=== PATIENT | female | born 1965 | race Caucasian/White ===

== ENCOUNTER 2017-08-28 09:42 | Inpatient (IN) | payer OTHER, SELFPAY ==
[2017-08-28] VITALS (11 sets, daily range): BP systolic 92–122; BP diastolic 54–74; PULSE 95–128; RESP 14–24; TEMP 36.6–37.3; O2SAT 95–100; BMI 30.2; BMI 30.1
--- NOTE | 2017-08-28 09:57 | CT_ITS ---
STUDY: CT BRAIN WITHOUT CONTRAST REASON FOR EXAM: Female, 52 years old. Headaches. Possible influenza. RADIATION DOSAGE (If Supplied By Facility): CTDIvol = ( 44.99 ) mGy, DLP = ( 745.49 ) mGycm TECHNIQUE: Transaxial CT imaging of the brain was performed without administration of intravenous contrast material. Individualized dose optimization techniques were used for this CT. COMPARISON: None. FINDINGS: Normal soft tissue structures. Normal calvarium. Normal size ventricles and extra-axial spaces for the patient's age. Normal white matter tracts of the cerebral hemispheres. Normal basal ganglia and thalami. Normal brainstem. Normal cerebellum. There is no intracranial hemorrhage. There are no findings of an acute ischemic infarction. Normal visualized paranasal sinuses. CT/Brain/Head without Contrast IMPRESSION: Normal unenhanced CT scan of the brain. Electronically Signed: Toby Herbert MD at 11:18 EST Tel [phone], Service support ,
--- NOTE | 2017-08-28 09:57 | EKG12_ITS ---
Test Reason : COLDSYM Blood Pressure : / mmHG Vent. Rate : 103 BPM Atrial Rate : 103 BPM P-R Int : 138 ms QRS Dur : 084 ms QT Int : 338 ms P-R-T Axes : 054 047 046 degrees QTc Int : 442 ms Sinus tachycardia Otherwise normal ECG Confirmed by NICHOLAS PADRON, JAD ([id number]), editor greeting card ANDREIA VAZQUEZ ([id number]) on 08/29/2017 1:19:32 PM Referred By: Confirmed By:JAD PETERSON MD
--- NOTE | 2017-08-28 10:00 | ED.VISSUMM ---
- ER Visit Summary Date of Service: 08/28/17 Chief Complaint: Cough, chest discomfort, headache History of Present Illness: The patient is a 52 F presents with 10 days of symptoms, initially cough, myalgias, headache, seen at urgent care early on, status post Tamiflu. States symptoms were improving. However 2 days ago had increasing chest discomfort with cough. Pain with deep breaths. No pain down the arm. No nausea or vomiting. Persistent frontal headache with no visual changes. No photo or phonophobia. No head injuries. Using Tylenol and naproxen with no relief. Last dose of naproxen at 8 AM today. One diarrhea episode today. No abdominal pain. No tobacco history. No recent travel, surgeries, or immobilizations. No history of PE or DVT. Currently takes no medications daily. Physical Examination: General: Alert and oriented ?3, no acute distress HEENT: Normocephalic, atraumatic. Moist mucosa membranes Neck: supple, nontender. No meningismus Cardiovascular: Regular tachycardic rate and rhythm, no murmurs. Mild anterior left chest wall tenderness with no crepitus. No rash. Respiratory: Normal breath sounds, symmetric, no distress Abdomen: Soft, nontender, nondistended Extremities: Nontender, no edema, pulses intact ?4 Neuro: no focal neurological deficits. Cranial nerves II through XII intact. Test Results: EKG sinus tachycardia 103, no ST or T-wave changes. CBC, white count 20.7. Hemoglobin 13.4. Creatinine 1.24. Troponin negative. D-dimer 1.5. Lactate and blood cultures pending. Chest x-ray left lower lobe pneumonia with effusion. CTA chest: Left lower lobe pneumonia with effusion. No PE. CT head negative. Emergency Department Course and Treatment: Patient presents afebrile she is slight tachycardia. Plan pleuritic symptoms of pain with deep breaths on the left side of her chest. Workup initiated including d-dimer for PE rule out. Results noting left lower lobe infiltrate with effusion. Heart rate did improve with fluids. Her white count was 20,000. I did add lactate and blood cultures for sepsis labs. Started on Rocephin and Zithromax for community acquired pneumonia. Discuss with her PCP, Dr. Cuevas concerned with post influenza symptoms now pneumonia. With her headache symptoms, CT head was obtained which was negative. Treated fentanyl and Zofran for symptomatic treatment. Spoke with hospitalist, Dr. Crawley for admission. She is stable for the medical floor. Treatment Plan: Antibiotics Disposition: Admission Impression: 1. Community acquired pneumonia 2. Cephalgia 3. Sepsis This note was generated with [employer] dictation software. It may contain incorrect words, spelling, and punctuation that were not noted in review of the chart prior to signing ED Disposition - Plan for ED Patient: Disposition: Acute Care [facility] Chief Complaint: Cold Sx Diagnosis: Pneumonia, Sepsis, Cephalgia Referrals: Nohemy Cuevas DO [Primary Care Provider] -
--- NOTE | 2017-08-28 10:02 | NURSING ---
NO OLD EKGS
--- NOTE | 2017-08-28 10:40 | RAD_ITS ---
STUDY: X-RAY CHEST REASON FOR EXAM: Female, 52 years old. Cough. Cold like symptoms. TECHNIQUE: PA and lateral views of the chest. COMPARISON: None. FINDINGS: Small left pleural effusion with underlying left lower lobe infiltration. There is no demonstrated pleural abnormality. Normal size heart. Normal mediastinum and austen. Normal visualized pulmonary arteries. Normal visualized aortic arch and descending thoracic aorta. Normal visualized thoracic spine. Normal visualized ribs, clavicles, and shoulders. There is no demonstrated abnormality of the visualized soft tissue structures of the upper abdomen. RAD/Chest PA and Lateral IMPRESSION: Left lower lobe infiltrate with small left pleural effusion. Electronically Signed: Toby Herbert MD at 11:18 EST Tel [phone], Service support ,
[2017-08-28 10:45] LABS: Absolute Lymphocyte Count 0.42 X10^3/ul (0.83-4.51); Absolute Neutrophil Count 19.6 X10^3/uL (2.0-7.7); Eosinophil# 0.01 X10^3/uL; Hematocrit 39.4 % (37-47); Hemoglobin 13.4 g/dl (12.0-15.0); Lymphocyte # 0.42 X10^3/ul (4.0); Mean Corpuscular Hgb 30.2 pg (27.0-32.0); Mean Corpuscular Volume 88.9 fL (81-99); Mean Platelet Vol. 11.6 fl (6.2-12.0); Monocyte# 0.46 X10^3/uL; Monocyte% 2.2 % (0-10); Neutrophil # 19.62 X10^3/uL (2.7-7.7); Neutrophil % 94.9 % (47-70); Platelet Count 187 K/mm3 (150-450); RBC Distribution Width CV 13.8 % (11.6-14.6); RBC Distribution Width SD 45.1 fl (35.1-43.9); Red Blood Count 4.43 M/mm3 (4.2-5.4); White Blood Count 20.7 K/mm3 (4.4-11.0)
[2017-08-28 10:47] LABS: Differential Indicated SCAN CRITERIA MET; POSITIVE COUNT NO; POSITIVE DIFFERENTIAL YES; POSITIVE MORPHOLOGY NO
[2017-08-28 10:57] LABS: BUN 37 mg/dL (7-18); BUN/Creat Ratio 29.8 RATIO (10-20); Calcium,Total 8.6 mg/dL (8.5-10.1); Creatinine, Serum 1.24 mg/dL (0.55-1.02); EST Glomerular Filtration Rate 48 mL/min (>60); Est Glom Filt Rate - Afr Amer 58 mL/min (>60); Estimated Creatinine Clearance 41.97 ml/min; Glucose 102 mg/dL (74-106)
[2017-08-28 10:58] LABS: Anion Gap 11 (5-15); Chloride 105 mmol/L (98-107); D-Dimer Quantitative (DVT/PE) 1.51 FEU/ug/m (0.27-0.49); Potassium 3.6 mmol/L (3.5-5.1); Sodium Level 138 mmol/L (136-145)
--- NOTE | 2017-08-28 11:03 | CT_ITS ---
STUDY: CTA CHEST REASON FOR EXAM: Female, 52 years old. Shortness of breath. Influenza. Elevated d-dimer. RADIATION DOSAGE (If Supplied By Facility): CTDIvol = ( 5.84 ) mGy, DLP = ( 233.54 ) mGycm TECHNIQUE: The examination was performed with the intravenous administration of 75ML ml of Isovue 370 contrast material. Post-processing of the angiographic images was performed, with multiplanar reformation and 3D reconstruction. Individualized dose optimization techniques were used for this CT. COMPARISON: None. FINDINGS: Normal enhancement of the main pulmonary artery and right and left pulmonary arteries. Normal enhancement of the bilateral peripheral pulmonary arteries. There is no demonstrated pulmonary embolism. Normal thoracic aorta and visualized great vessels. There is no demonstrated aortic dissection. Normal heart and pericardium. Normal mediastinum. Normal hilar regions. Normal visualized trachea and bronchi. The lungs are well expanded. Left lower lobe consolidation. Small left pleural effusion. Minimal degree of increased markings at the right lung base. Normal chest wall structures. Normal osseous structures. Normal visualized upper abdomen. CT/CTA Chest W/WO Contrast IMPRESSION: Left lower lobe consolidation with a small left pleural effusion. Mild increased markings at the right lung base. Electronically Signed: Toby Herbert MD at 12:30 EST Tel [phone], Service support ,
[2017-08-28] MEDS: Ondansetron 4 MG/2 ML Vial IV ×2 (12:48→15:05)
[2017-08-28] MEDS: fentaNYL 100 MCG/2 ML Ampul 25 MCG IV (12:48)
[2017-08-28 13:05] LABS: AST(SGOT) 15 U/L (15-37); Alanine Aminotransfer ALT/SGPT 20 U/L (13-56); Albumin, Serum 3.3 g/dL (3.2-5.0); Alkaline Phosphatase 75 U/L (45-117); Bilirubin, Direct 0.32 mg/dL (0.00-0.30); Globulin 3.6 g/dL (2.2-4.2); Protein, Total 6.9 g/dL (6.4-8.2)
--- NOTE | 2017-08-28 13:06 | NURSING ---
214 cap, lll letty
[2017-08-28 13:23] LABS: International Normalized Ratio 1.3
[2017-08-28 13:24] LABS: Partial Thromboplast Time 35.1 Seconds (24.1-36.2)
--- NOTE | 2017-08-28 13:24 | ED.RN ---
PATIENT HAS ZITHROMAX RUNNING THROUGH PIV, OTHER PIV ATTEMPTED UNSUCCESSFUL. SENDING ROCEPHIN DOSE UP WITH PATIENT AT THIS TIME. BLOOD CULTURES SENT.
--- NOTE | 2017-08-28 13:35 | PCM.HP.STD ---
Problem List (1) Community acquired pneumonia of left lower lobe of lung Status: Acute (2) Left lower pneumonic pleural effusion Status: Acute (3) Sepsis Status: Acute (4) Cephalgia Status: Acute History of Present Illness Date of Admission: 08/28/17 Chief Complaint: Cough, chest discomfort with fever and chills for about 10 days The patient is a 52 year old F with no significant past medical history came to ER with symptoms of cough, fever, chills, myalgia and headache, on and off for about 10 days. Earlier, patient was given Tamiflu in urgent care. Her symptoms were improved for brief. Of time and then gotten worse with cough, fever and chills and left lower chest discomfort/pain. Pain is localized left lower anterior chest. Patient also had loose bowel movement in the morning today, liquid in consistency. No abdominal pain. In ED, she had chest x-ray which showed left lower lobe infiltrate with small left pleural effusion and after that she had CT angiogram chest for elevated d-dimer which showed similar picture left lower lobe consolidation with a small left pleural effusion. PE was ruled out. Patient was ordered IV ceftriaxone and Zithromax. No recent antibiotic as an outpatient. Past Medical History Allergies No Known Allergies Allergy (Verified 08/28/17 09:44) Home Medications: Ambulatory Orders Medication Instructions Recorded NK [NK] 08/28/17 Smoking Status: Never smoker - *Family History Paternal History Items: No pertinent history Review of Systems Constitutional: Reports: Anorexia, Chills, Fever, Weakness, Fatigue HEENT: Denies: Head Aches, Sinus Congestion, Sinus Drainage Cardiovascular: Reports: Chest Pain. Denies: Palpitations Respiratory: Reports: Cough, Shortness of breath upon exertion. Denies: Shortness of breath at rest, Sputum production Gastrointestinal: Reports: Diarrhea. Denies: Abdominal Pain, Nausea, Vomiting Genitourinary: Denies: Dysuria Musculoskeletal: Denies: Joint Pain, Joint Tenderness Skin: Denies: Rash, Wounds Neurological: Denies: Numbness, Tingling, Focal weakness Psychiatric: Denies: Anxiety, Depression, Homicidal Ideations, Suicidal Ideations Hematologic/ Lymphatic: Denies: Easy Bruising, Easy Bleeding VTE Information - Inpt Only VTE Present on Admission: No VTE Mechan Device Prophylaxis: SCD's VTE Pharm Prophylaxis ordered?: Yes Patient Problems: Active and Suspected Problems Sepsis (Acute) Cephalgia (Acute) Community acquired pneumonia of left lower lobe of lung (Acute) Left lower pneumonic pleural effusion (Acute) - Physical Exam General: Alert, Oriented x3, Cooperative HEENT: Atraumatic, PERRLA, EOMI, Normocephalic Oral: Dry Mucosa Neck: Supple, No JVD, Negative Carotid Bruits Lungs: Clear to auscultation, No rhonchi, No wheeze, No rales, Diminished - On left lower chest posteriorly Cardiovascular: Regular rate, Regular Rhythm, Normal S1, Normal S2, No murmurs Abdomen: Bowel Sounds Present, Soft, Non Tender, Non-Distended Extremities: No edema, Capillary Refill Less than 3 Seconds Skin: No rashes, No breakdown Musculoskeletal: No Tenderness to Palpation of Joints or Extremities Neurological: Cranial nerves II-XII grossly intact Psych/Mental Status: Normal Affect, Appropriate Vital Signs Temp Pulse Resp BP Pulse Ox 98 F 96 14 122/74 H 97 08/28/17 09:43 08/28/17 13:10 08/28/17 13:10 08/28/17 13:10 08/28/17 13:10 Laboratory Tests Past 24 Hrs 08/28/17 13:00 Lactic Acid Pending Assessment/Plan Active and Suspected Problems Sepsis (Acute) Cephalgia (Acute) Community acquired pneumonia of left lower lobe of lung (Acute) Left lower pneumonic pleural effusion (Acute) The patient is a 52 year old F with no significant past medical history came to ER with symptoms of cough, fever, chills, myalgia and headache, on and off for about 10 days. Earlier, patient was given Tamiflu in urgent care. Her symptoms were improved for brief. Of time and then gotten worse with cough, fever and chills and left lower chest discomfort/pain. Pain is localized left lower anterior chest. Patient also had loose bowel movement in the morning today, liquid in consistency. No abdominal pain. In ED, she had chest x-ray which showed left lower lobe infiltrate with small left pleural effusion and after that she had CT angiogram chest for elevated d-dimer which showed similar picture left lower lobe consolidation with a small left pleural effusion. PE was ruled out. Patient was ordered IV ceftriaxone and Zithromax. No recent antibiotic as an outpatient. 1. SIRS (tachycardia and leukocytosis with left shift) with sepsis due to left lower lobe complicated community acquired pneumonia: Patient is being admitted on the monitored bed. On IV fluid normal saline. IV antibiotics. Bronchodilator. 2. Complicated left lower lobe community acquired pneumonia with small parapneumonic left pleural effusion: IV antibiotics ceftriaxone and Zithromax. Incentive spirometry symptomatic management for cough, chest physiotherapy and incentive spirometry. Blood cultures ?2, MRSA nasal screen, respiratory panel ordered. Lactic acid pending. 3. Other symptoms include headache and diarrhea possibly related to sepsis due to pneumonia: Symptomatic management. On probiotic. DVT prophylaxis: Moderate risk, on Lovenox and bilateral SCDs. Clinical Impression(s) from Imaging Studies Brain CT 08/28/17 09:57 IMPRESSION: Normal unenhanced CT scan of the brain. Electronically Signed: Toby Herbert MD at 11:18 EST Tel [phone], Service support , Chest X-Ray 08/28/17 10:40 IMPRESSION: Left lower lobe infiltrate with small left pleural effusion. Electronically Signed: Toby Herbert MD at 11:18 EST Tel [phone], Service support , Chest CTA 08/28/17 11:03 IMPRESSION: Left lower lobe consolidation with a small left pleural effusion. Mild increased markings at the right lung base. Electronically Signed: Toby Herbert MD at 12:30 EST Tel [phone], Service support , Code Visit Inpatient E&M: 18876 Init Hosp L3
--- NOTE | 2017-08-28 13:38 | ED.RN ---
VERBAL REPORT GIVE4N TO FLOOR RN, MADE AWARE OF THE NEED FOR ROCEPHIN TO STILL BE HUNG.
[2017-08-28 13:45] LABS: Lactic Acid 1.5 mmol/L (0.4-2.0)
--- NOTE | 2017-08-28 13:47 | HP.PCM_ITS ---
Problem List (1) Community acquired pneumonia of left lower lobe of lung Status: Acute (2) Left lower pneumonic pleural effusion Status: Acute (3) Sepsis Status: Acute (4) Cephalgia Status: Acute History of Present Illness Date of Admission: 08/28/17 Chief Complaint: Cough, chest discomfort with fever and chills for about 10 days The patient is a 52 year old F with no significant past medical history came to ER with symptoms of cough, fever, chills, myalgia and headache, on and off for about 10 days. Earlier, patient was given Tamiflu in urgent care. Her symptoms were improved for brief. Of time and then gotten worse with cough, fever and chills and left lower chest discomfort/pain. Pain is localized left lower anterior chest. Patient also had loose bowel movement in the morning today, liquid in consistency. No abdominal pain. In ED, she had chest x-ray which showed left lower lobe infiltrate with small left pleural effusion and after that she had CT angiogram chest for elevated d- dimer which showed similar picture left lower lobe consolidation with a small left pleural effusion. PE was ruled out. Patient was ordered IV ceftriaxone and Zithromax. No recent antibiotic as an outpatient. Past Medical History Allergies No Known Allergies Allergy (Verified 08/28/17 09:44) Home Medications: Ambulatory Orders Medication Instructions Recorded NK [NK] 08/28/17 Smoking Status: Never smoker - *Family History Paternal History Items: No pertinent history Review of Systems Constitutional: Reports: Anorexia, Chills, Fever, Weakness, Fatigue HEENT: Denies: Head Aches, Sinus Congestion, Sinus Drainage Cardiovascular: Reports: Chest Pain. Denies: Palpitations Respiratory: Reports: Cough, Shortness of breath upon exertion. Denies: Shortness of breath at rest, Sputum production Gastrointestinal: Reports: Diarrhea. Denies: Abdominal Pain, Nausea, Vomiting Genitourinary: Denies: Dysuria Musculoskeletal: Denies: Joint Pain, Joint Tenderness Skin: Denies: Rash, Wounds Neurological: Denies: Numbness, Tingling, Focal weakness Psychiatric: Denies: Anxiety, Depression, Homicidal Ideations, Suicidal Ideations Hematologic/ Lymphatic: Denies: Easy Bruising, Easy Bleeding VTE Information - Inpt Only VTE Present on Admission: No VTE Mechan Device Prophylaxis: SCD's VTE Pharm Prophylaxis ordered?: Yes Patient Problems: Active and Suspected Problems Sepsis (Acute) Cephalgia (Acute) Community acquired pneumonia of left lower lobe of lung (Acute) Left lower pneumonic pleural effusion (Acute) - Physical Exam General: Alert, Oriented x3, Cooperative HEENT: Atraumatic, PERRLA, EOMI, Normocephalic Oral: Dry Mucosa Neck: Supple, No JVD, Negative Carotid Bruits Lungs: Clear to auscultation, No rhonchi, No wheeze, No rales, Diminished - On left lower chest posteriorly Cardiovascular: Regular rate, Regular Rhythm, Normal S1, Normal S2, No murmurs Abdomen: Bowel Sounds Present, Soft, Non Tender, Non-Distended Extremities: No edema, Capillary Refill Less than 3 Seconds Skin: No rashes, No breakdown Musculoskeletal: No Tenderness to Palpation of Joints or Extremities Neurological: Cranial nerves II-XII grossly intact Psych/Mental Status: Normal Affect, Appropriate Vital Signs Temp Pulse Resp BP Pulse Ox 98 F 96 14 122/74 H 97 08/28/17 09:43 08/28/17 13:10 08/28/17 13:10 08/28/17 13:10 08/28/17 13:10 Laboratory Tests Past 24 Hrs 08/28/17 13:00 Lactic Acid Pending Assessment/Plan Active and Suspected Problems Sepsis (Acute) Cephalgia (Acute) Community acquired pneumonia of left lower lobe of lung (Acute) Left lower pneumonic pleural effusion (Acute) The patient is a 52 year old F with no significant past medical history came to ER with symptoms of cough, fever, chills, myalgia and headache, on and off for about 10 days. Earlier, patient was given Tamiflu in urgent care. Her symptoms were improved for brief. Of time and then gotten worse with cough, fever and chills and left lower chest discomfort/pain. Pain is localized left lower anterior chest. Patient also had loose bowel movement in the morning today, liquid in consistency. No abdominal pain. In ED, she had chest x-ray which showed left lower lobe infiltrate with small left pleural effusion and after that she had CT angiogram chest for elevated d- dimer which showed similar picture left lower lobe consolidation with a small left pleural effusion. PE was ruled out. Patient was ordered IV ceftriaxone and Zithromax. No recent antibiotic as an outpatient. 1. SIRS (tachycardia and leukocytosis with left shift) with sepsis due to left lower lobe complicated community acquired pneumonia: Patient is being admitted on the monitored bed. On IV fluid normal saline. IV antibiotics. Bronchodilator. 2. Complicated left lower lobe community acquired pneumonia with small parapneumonic left pleural effusion: IV antibiotics ceftriaxone and Zithromax. Incentive spirometry symptomatic management for cough, chest physiotherapy and incentive spirometry. Blood cultures ?2, MRSA nasal screen, respiratory panel ordered. Lactic acid pending. 3. Other symptoms include headache and diarrhea possibly related to sepsis due to pneumonia: Symptomatic management. On probiotic. DVT prophylaxis: Moderate risk, on Lovenox and bilateral SCDs. Clinical Impression(s) from Imaging Studies Brain CT 08/28/17 09:57 IMPRESSION: Normal unenhanced CT scan of the brain. Electronically Signed: Toby Herbert MD at 11:18 EST Tel [phone], Service support , Chest X-Ray 08/28/17 10:40 IMPRESSION: Left lower lobe infiltrate with small left pleural effusion. Electronically Signed: Toby Herbert MD at 11:18 EST Tel [phone], Service support , Chest CTA 08/28/17 11:03 IMPRESSION: Left lower lobe consolidation with a small left pleural effusion. Mild increased markings at the right lung base. Electronically Signed: Toby Herbert MD at 12:30 EST Tel [phone], Service support , Code Visit Inpatient E&M: 97520 Init Hosp L3
--- NOTE | 2017-08-28 14:28 | CASEMGMT ---
DC Plan: home on dc. No needs identified @ this time. Notify CM if dc needs arise.
[2017-08-28] MEDS: Ceftriaxone 1 GM/50 mL Premix x1 IV (15:03)
[2017-08-28] MEDS: Acetaminophen 325 MG Tablet 650 MG PO (15:05)
[2017-08-28] MEDS: guaiFENesin 600 MG Tablet 1200 MG PO ×2 (15:05→22:46)
[2017-08-28] MEDS: Enoxaparin 40 MG/0.4 ML Syringe SC (15:05)
[2017-08-28] MEDS: Famotidine 20 MG Tablet PO ×2 (15:06→22:46)
[2017-08-28] MEDS: oxyCODONE 5 MG Tablet PO ×2 (15:06→19:30)
[2017-08-28 15:07] LABS: Color, Urine Yellow (Yellow); Glucose, Dipstick Normal (Normal); Ketone-Dipstick 50 mg/dl (Negative); Leukocyte Esterase-Dipstick Negative /ul (Negative); Nitrite-Dipstick Negative (Negative); Occult Blood-Urine 10 /ul (Negative); Protein-Dipstick 30 mg/dl (Negative); Specific Gravity, Urine 1.005 (1.002-1.030); Urine Bilirubin Dipstick Negative (Negative); Urine Clarity Sl. Cloudy (Clear); Urine Urobilinogen 4 mg/dl (Normal); Urine pH 6.5 (5.0 - 8.0)
[2017-08-28] MEDS: 0.9% Normal Saline 1,000 ML 100 ML IV (15:18)
--- NOTE | 2017-08-28 15:19 | NURSING ---
MARTI FROM [facility] CALLED AND ASKED TO GIVE AEROSOL AND GET SPUTUM COLLECTION, PT HAS WEAK, NON PRODUCTIVE COUGH C/O RIB PAIN ON LEFT STATES HSE HAD IN ER AND INFORMED THAT SHE HAS LEFT CHEST DISCOMFORT
[2017-08-28] MEDS: Albuterol 2.5 MG/3 ML VIAL.NEB. INHALATION (15:44)
[2017-08-28] MEDS: Ipratropium/Albuterol Sulfate 3 ML AMPUL.NEB INHALATION (19:46)
[2017-08-28 21:16] LABS: M R Staph aureus DNA By PCR Negative (Negative); Probe Check PASS; Specimen Processing Control PASS
[2017-08-29] VITALS (11 sets, daily range): BP systolic 94–98; BP diastolic 54–65; PULSE 89–115; RESP 16–20; TEMP 36.4–37.1; O2SAT 94–99
[2017-08-29] MEDS: oxyCODONE 5 MG Tablet PO ×5 (01:01→20:53)
[2017-08-29] MEDS: 0.9% NaCl Peripheral Flush Adult/Peds IV (01:02)
[2017-08-29] MEDS: Ondansetron 4 MG/2 ML Vial IV ×3 (01:02→16:29)
[2017-08-29] MEDS: 0.9% Normal Saline 1,000 ML 100 ML IV (01:02)
[2017-08-29 06:17] LABS: Absolute Lymphocyte Count 0.46 X10^3/ul (0.83-4.51); Absolute Neutrophil Count 13.2 X10^3/uL (2.0-7.7); Basophil# 0.01 X10^3/uL; Basophil% 0.1 % (0-1); Hematocrit 34.2 % (37-47); Hemoglobin 11.6 g/dl (12.0-15.0); Lymphocyte # 0.46 X10^3/ul (4.0); Lymphocyte % 3.3 % (19-41); Mean Corp Hgb Conc 33.9 g/gl (32-36); Mean Corpuscular Hgb 30.9 pg (27.0-32.0); Mean Platelet Vol. 12.1 fl (6.2-12.0); Monocyte# 0.44 X10^3/uL; Monocyte% 3.1 % (0-10); Neutrophil # 13.18 X10^3/uL (2.7-7.7); Neutrophil % 93.2 % (47-70); Platelet Count 194 K/mm3 (150-450); RBC Distribution Width CV 14.4 % (11.6-14.6); RBC Distribution Width SD 46.4 fl (35.1-43.9); Red Blood Count 3.76 M/mm3 (4.2-5.4); White Blood Count 14.1 K/mm3 (4.4-11.0)
[2017-08-29 06:18] LABS: Differential Indicated SCAN CRITERIA MET; POSITIVE COUNT NO; POSITIVE DIFFERENTIAL YES; POSITIVE MORPHOLOGY YES
[2017-08-29] MEDS: Enoxaparin 40 MG/0.4 ML Syringe SC (06:36)
[2017-08-29 06:48] LABS: Anion Gap 7 (5-15); BUN 23 mg/dL (7-18); BUN/Creat Ratio 30.2 RATIO (10-20); Calcium,Total 7.5 mg/dL (8.5-10.1); Chloride 107 mmol/L (98-107); Creatinine, Serum 0.76 mg/dL (0.55-1.02); EST Glomerular Filtration Rate 85 mL/min (>60); Est Glom Filt Rate - Afr Amer 103 mL/min (>60); Estimated Creatinine Clearance 68.48 ml/min; Glucose 102 mg/dL (74-106); Potassium 3.8 mmol/L (3.5-5.1); Sodium Level 138 mmol/L (136-145)
[2017-08-29] MEDS: Ipratropium/Albuterol Sulfate 3 ML AMPUL.NEB INHALATION ×3 (07:12→19:15)
[2017-08-29] MEDS: 0.9% Normal Saline 1,000 ML 999 ML IV (08:43)
[2017-08-29 09:10] LABS: Lactic Acid 1.6 mmol/L (0.4-2.0)
[2017-08-29] MEDS: Ceftriaxone 1 GM/50 ML BAG IV (09:50)
[2017-08-29] MEDS: 0.9% Normal Saline 1,000 ML 150 ML IV ×2 (09:51→18:29)
[2017-08-29] MEDS: guaiFENesin 600 MG Tablet 1200 MG PO ×2 (09:53→22:07)
[2017-08-29] MEDS: Famotidine 20 MG Tablet PO ×2 (09:55→22:07)
[2017-08-29] MEDS: Acetaminophen 325 MG Tablet 650 MG PO ×3 (10:57→20:53)
--- NOTE | 2017-08-29 11:43 | EKG12_ITS ---
Test Reason : TACHY Blood Pressure : / mmHG Vent. Rate : 089 BPM Atrial Rate : 089 BPM P-R Int : 152 ms QRS Dur : 090 ms QT Int : 368 ms P-R-T Axes : 056 027 025 degrees QTc Int : 447 ms Normal sinus rhythm Low voltage QRS Borderline ECG When compared with ECG of 28-AUG-2017 10:06, No significant change was found Confirmed by MARY ANN ALBRECHT ([id number]), news editor ANDREIA AVZQUEZ ([id number]) on 09/07/2017 3:02:27 PM Referred By: VIDA Confirmed By:MARY ANN ALBRECHT
--- NOTE | 2017-08-29 14:01 | PCM.PN.HOSP ---
Patient Problems: Active and Suspected Problems Sepsis (Acute) Cephalgia (Acute) Community acquired pneumonia of left lower lobe of lung (Acute) Left lower pneumonic pleural effusion (Acute) Subjective: Blood Pressure dropped to the low 90s and mild tachycardia morning today. Mild tachycardia due to sepsis Vitals/I&O's: Vital Signs Temp Pulse Resp BP Pulse Ox 98.8 F 101 H 18 94/61 95 08/29/17 10:24 08/29/17 10:24 08/29/17 10:24 08/29/17 10:24 08/29/17 10:24 Oxygen Delivery Method Room Air Weight: 164 lb 14.492 oz Body Mass Index (BMI) 30.1 Intake and Output for Last 24 Hours 08/27/17 08/28/17 08/29/17 23:59 23:59 23:59 Intake Total 4596 / 4596 Output Total 2600 / 2600 Balance 1995 General: Oriented x3, Cooperative, Lethargic, - - Looks very weak and sick HEENT: Atraumatic, PERRLA, EOMI, Normocephalic Neck: Supple, No JVD, Negative Carotid Bruits Lungs: No rhonchi, No wheeze, Diminished - In posterior half of the left lung Cardiovascular: Regular rate, Regular Rhythm, Normal S1, Normal S2, No murmurs Abdomen: Bowel Sounds Present, Soft, Non Tender, Non-Distended Extremities: No edema, Capillary Refill Less than 3 Seconds Skin: No rashes, No breakdown Musculoskeletal: No Tenderness to Palpation of Joints or Extremities Neurological: Cranial nerves II-XII grossly intact Psych/Mental Status: Normal Affect, Appropriate Microbiology Past 72 Hours 08/28/17 15:55 Mucosa - Nasopharyngeal Respiratory Panel (PCR) - Final Human [place] 08/28/17 14:30 Urine, Clean Catch Streptococcus pneumoniae Antigen (M - Final 08/28/17 14:30 Urine, Clean Catch Legionella Antigen - Final Laboratory Results 08/28/17 14:30: Urine Color Yellow, Urine Clarity Sl. Cloudy, Urine pH 6.5, Ur Specific [place] 1.005, Urine Protein 30 H, Urine Glucose (UA) Normal, Urine Ketones 50 H, Urine Occult Blood 10 H, Urine Nitrite Negative, Urine Bilirubin Negative, Urine Urobilinogen 4 H, Ur Leukocyte Esterase Negative 08/28/17 19:30: MRSA (PCR) Negative 08/29/17 05:50: WBC 14.1 H, RBC 3.76 L, Hgb 11.6 L, Hct 34.2 L, MCV 91.0, MCH 30.9, MCHC 33.9, RDW 14.4, RDW Differential 46.4 H, Plt Count 194, MPV 12.1 H, Immature Gran % (Auto) 0.300, Neut % (Auto) 93.2 H, Lymph % (Auto) 3.3 L, [place] % (Auto) 3.1, Eos % (Auto) 0.0, Baso % (Auto) 0.1, Absolute Neuts (auto) 13.2 H, Absolute Lymphs (auto) 0.46 L, Total Counted Not Reportable 08/29/17 05:50: Sodium 138, Potassium 3.8, Chloride 107, Carbon Dioxide 24.0, Anion Gap 7, BUN 23 H, Creatinine 0.76, Estim Creat Clear Calc 68.48, Est GFR (MDRD) Af Amer 103, Est GFR (MDRD) Non-Af 85, BUN/Creatinine Ratio 30.2 H, Glucose 102, Calcium 7.5 L 08/29/17 08:35: Lactic Acid 1.6 Current Medications Acetaminophen (Tylenol) 650 mg PO Q4H PRN PRN PRN Reason: FEVER Last Admin: 08/29/17 10:57 Dose: 650 mg Albuterol Sulfate (Ventolin Aerosols) 2.5 mg INHALATION Q2H PRN PRN PRN Reason: SHORTNESS OF BREATH Last Admin: 08/28/17 15:44 Dose: 2.5 mg Albuterol/Ipratropium (Duoneb) 3 ml INHALATION Q6HWA.RT [facility] Last Admin: 08/29/17 13:28 Dose: 3 ml Docusate Sodium (Colace) 200 mg PO BID PRN PRN PRN Reason: Constipation Enoxaparin Sodium (Lovenox) 40 mg SC DAILY@0600 [facility] Last Admin: 08/29/17 06:36 Dose: 40 mg Famotidine (Pepcid) 20 mg PO BID [facility] Last Admin: 08/29/17 09:55 Dose: 20 mg Guaifenesin (Mucinex) 1,200 mg PO BID [facility] Last Admin: 08/29/17 09:53 Dose: 1,200 mg Azithromycin 500 mg/ Dextrose 255 mls @ 250 mls/hr IV Q24 [facility] Stop: 08/30/17 11:02 Last Admin: 08/29/17 10:43 Dose: 250 mls/hr Ceftriaxone Sodium (Rocephin) 1 gm in 50 mls @ 100 mls/hr IV Q24 [facility] Last Admin: 08/29/17 09:50 Dose: 100 mls/hr Sodium Chloride () 1,000 mls @ 150 mls/hr IV .Q6H40M [facility] Last Admin: 08/29/17 09:51 Dose: 150 mls/hr Ondansetron HCl (Zofran) 4 mg IV Q6H PRN PRN PRN Reason: NAUSEA Last Admin: 08/29/17 08:42 Dose: 4 mg Oxycodone HCl (Oxyir) 5 mg PO Q4H PRN PRN PRN Reason: Moderate Pain (pain scale 4-5) Last Admin: 08/29/17 10:57 Dose: 5 mg Sodium Chloride () 5 - 30 ml IV UD PRN PRN Reason: SALINE FLUSH Last Admin: 08/29/17 01:02 Dose: 10 ml Zolpidem Tartrate (Ambien (Generic)) 5 mg PO QHS PRN PRN PRN Reason: SLEEP Assessment/Plan Active and Suspected Problems Sepsis (Acute) Cephalgia (Acute) Community acquired pneumonia of left lower lobe of lung (Acute) Left lower pneumonic pleural effusion (Acute) The patient is a 52 year old F with no significant past medical history came to ER with symptoms of cough, fever, chills, myalgia and headache, on and off for about 10 days. Earlier, patient was given Tamiflu in urgent care. Her symptoms were improved for brief. Of time and then gotten worse with cough, fever and chills and left lower chest discomfort/pain. Pain is localized left lower anterior chest. Patient also had loose bowel movement in the morning today, liquid in consistency. No abdominal pain. In ED, she had chest x-ray which showed left lower lobe infiltrate with small left pleural effusion and after that she had CT angiogram chest for elevated d-dimer which showed similar picture left lower lobe consolidation with a small left pleural effusion. PE was ruled out. Patient was ordered IV ceftriaxone and Zithromax. No recent antibiotic as an outpatient. 1. SIRS (tachycardia and leukocytosis with left shift) with hypotension due to severe sepsis due to left lower lobe complicated community acquired pneumonia: Patient is being admitted on the monitored bed. On IV fluid normal saline. IV antibiotics. Bronchodilator. Patient was given IV fluid normal saline 1 L bolus and then 150 ml per hour. 2. Complicated left lower lobe community acquired pneumonia with small parapneumonic left pleural effusion: Initially started on IV antibiotics ceftriaxone and Zithromax but changed IV Zosyn as the patient had low blood pressure suggestive of severe sepsis.. Incentive spirometry symptomatic management for cough, chest physiotherapy and incentive spirometry. Lactic acid is ?2 are normal. Respiratory panel shows human [place] S. Urinary antigens are negative. MRSA nasal screen negative. Blood cultures ?2 negative so far 3. Other symptoms include headache and diarrhea possibly related to sepsis due to pneumonia: Symptomatic management. On probiotic. DVT prophylaxis: Moderate risk, on Lovenox and bilateral SCDs. Microbiology Past 72 Hours 08/28/17 15:55 Mucosa - Nasopharyngeal Respiratory Panel (PCR) - Final Human [place] 08/28/17 14:30 Urine, Clean Catch Streptococcus pneumoniae Antigen (M - Final 08/28/17 14:30 Urine, Clean Catch Legionella Antigen - Final Laboratory Results 08/28/17 14:30: Urine Color Yellow, Urine Clarity Sl. Cloudy, Urine pH 6.5, Ur Specific [place] 1.005, Urine Protein 30 H, Urine Glucose (UA) Normal, Urine Ketones 50 H, Urine Occult Blood 10 H, Urine Nitrite Negative, Urine Bilirubin Negative, Urine Urobilinogen 4 H, Ur Leukocyte Esterase Negative 08/28/17 19:30: MRSA (PCR) Negative 08/29/17 05:50: WBC 14.1 H, RBC 3.76 L, Hgb 11.6 L, Hct 34.2 L, MCV 91.0, MCH 30.9, MCHC 33.9, RDW 14.4, RDW Differential 46.4 H, Plt Count 194, MPV 12.1 H, Immature Gran % (Auto) 0.300, Neut % (Auto) 93.2 H, Lymph % (Auto) 3.3 L, [place] % (Auto) 3.1, Eos % (Auto) 0.0, Baso % (Auto) 0.1, Absolute Neuts (auto) 13.2 H, Absolute Lymphs (auto) 0.46 L, Total Counted Not Reportable 08/29/17 05:50: Sodium 138, Potassium 3.8, Chloride 107, Carbon Dioxide 24.0, Anion Gap 7, BUN 23 H, Creatinine 0.76, Estim Creat Clear Calc 68.48, Est GFR (MDRD) Af Amer 103, Est GFR (MDRD) Non-Af 85, BUN/Creatinine Ratio 30.2 H, Glucose 102, Calcium 7.5 L 08/29/17 08:35: Lactic Acid 1.6 Clinical Impression(s) from Imaging Studies Brain CT 08/28/17 09:57 IMPRESSION: Normal unenhanced CT scan of the brain. Electronically Signed: Toby Herbert MD at 11:18 EST Tel [phone], Service support , Chest X-Ray 08/28/17 10:40 IMPRESSION: Left lower lobe infiltrate with small left pleural effusion. Electronically Signed: Toby Herbert MD at 11:18 EST Tel [phone], Service support , Chest CTA 08/28/17 11:03 IMPRESSION: Left lower lobe consolidation with a small left pleural effusion. Mild increased markings at the right lung base. Electronically Signed: Toby Herbert MD at 12:30 EST Tel [phone], Service support , Code Visit Inpatient E&M: 71798 Subs Hosp L3
--- NOTE | 2017-08-29 14:08 | PN_ITS ---
Patient Problems: Active and Suspected Problems Sepsis (Acute) Cephalgia (Acute) Community acquired pneumonia of left lower lobe of lung (Acute) Left lower pneumonic pleural effusion (Acute) Subjective: Blood Pressure dropped to the low 90s and mild tachycardia morning today. Mild tachycardia due to sepsis Vitals/I&O's: Vital Signs Temp Pulse Resp BP Pulse Ox 98.8 F 101 H 18 94/61 95 08/29/17 10:24 08/29/17 10:24 08/29/17 10:24 08/29/17 10:24 08/29/17 10:24 Oxygen Delivery Method Room Air Weight: 164 lb 14.492 oz Body Mass Index (BMI) 30.1 Intake and Output for Last 24 Hours 08/27/17 08/28/17 08/29/17 23:59 23:59 23:59 Intake Total 4596 / 4596 Output Total 2600 / 2600 Balance 1995 General: Oriented x3, Cooperative, Lethargic, - - Looks very weak and sick HEENT: Atraumatic, PERRLA, EOMI, Normocephalic Neck: Supple, No JVD, Negative Carotid Bruits Lungs: No rhonchi, No wheeze, Diminished - In posterior half of the left lung Cardiovascular: Regular rate, Regular Rhythm, Normal S1, Normal S2, No murmurs Abdomen: Bowel Sounds Present, Soft, Non Tender, Non-Distended Extremities: No edema, Capillary Refill Less than 3 Seconds Skin: No rashes, No breakdown Musculoskeletal: No Tenderness to Palpation of Joints or Extremities Neurological: Cranial nerves II-XII grossly intact Psych/Mental Status: Normal Affect, Appropriate Microbiology Past 72 Hours 08/28/17 15:55 Mucosa - Nasopharyngeal Respiratory Panel (PCR) - Final Human [place] 08/28/17 14:30 Urine, Clean Catch Streptococcus pneumoniae Antigen (M - Final 08/28/17 14:30 Urine, Clean Catch Legionella Antigen - Final Laboratory Results 08/28/17 14:30: Urine Color Yellow, Urine Clarity Sl. Cloudy, Urine pH 6.5, Ur Specific [place] 1.005, Urine Protein 30 H, Urine Glucose (UA) Normal, Urine Ketones 50 H, Urine Occult Blood 10 H, Urine Nitrite Negative, Urine Bilirubin Negative, Urine Urobilinogen 4 H, Ur Leukocyte Esterase Negative 08/28/17 19:30: MRSA (PCR) Negative 08/29/17 05:50: WBC 14.1 H, RBC 3.76 L, Hgb 11.6 L, Hct 34.2 L, MCV 91.0, MCH 30.9, MCHC 33.9, RDW 14.4, RDW Differential 46.4 H, Plt Count 194, MPV 12.1 H, Immature Gran % (Auto) 0.300, Neut % (Auto) 93.2 H, Lymph % (Auto) 3.3 L, [place] % (Auto) 3.1, Eos % (Auto) 0.0, Baso % (Auto) 0.1, Absolute Neuts (auto) 13.2 H , Absolute Lymphs (auto) 0.46 L, Total Counted Not Reportable 08/29/17 05:50: Sodium 138, Potassium 3.8, Chloride 107, Carbon Dioxide 24.0, Anion Gap 7, BUN 23 H, Creatinine 0.76, Estim Creat Clear Calc 68.48, Est GFR ( MDRD) Af Amer 103, Est GFR (MDRD) Non-Af 85, BUN/Creatinine Ratio 30.2 H, Glucose 102, Calcium 7.5 L 08/29/17 08:35: Lactic Acid 1.6 Current Medications Acetaminophen (Tylenol) 650 mg PO Q4H PRN PRN PRN Reason: FEVER Last Admin: 08/29/17 10:57 Dose: 650 mg Albuterol Sulfate (Ventolin Aerosols) 2.5 mg INHALATION Q2H PRN PRN PRN Reason: SHORTNESS OF BREATH Last Admin: 08/28/17 15:44 Dose: 2.5 mg Albuterol/Ipratropium (Duoneb) 3 ml INHALATION Q6HWA.RT [facility] Last Admin: 08/29/17 13:28 Dose: 3 ml Docusate Sodium (Colace) 200 mg PO BID PRN PRN PRN Reason: Constipation Enoxaparin Sodium (Lovenox) 40 mg SC DAILY@0600 [facility] Last Admin: 08/29/17 06:36 Dose: 40 mg Famotidine (Pepcid) 20 mg PO BID [facility] Last Admin: 08/29/17 09:55 Dose: 20 mg Guaifenesin (Mucinex) 1,200 mg PO BID [facility] Last Admin: 08/29/17 09:53 Dose: 1,200 mg Azithromycin 500 mg/ Dextrose 255 mls @ 250 mls/hr IV Q24 [facility] Stop: 08/30/17 11:02 Last Admin: 08/29/17 10:43 Dose: 250 mls/hr Ceftriaxone Sodium (Rocephin) 1 gm in 50 mls @ 100 mls/hr IV Q24 [facility] Last Admin: 08/29/17 09:50 Dose: 100 mls/hr Sodium Chloride () 1,000 mls @ 150 mls/hr IV .Q6H40M [facility] Last Admin: 08/29/17 09:51 Dose: 150 mls/hr Ondansetron HCl (Zofran) 4 mg IV Q6H PRN PRN PRN Reason: NAUSEA Last Admin: 08/29/17 08:42 Dose: 4 mg Oxycodone HCl (Oxyir) 5 mg PO Q4H PRN PRN PRN Reason: Moderate Pain (pain scale 4-5) Last Admin: 08/29/17 10:57 Dose: 5 mg Sodium Chloride () 5 - 30 ml IV UD PRN PRN Reason: SALINE FLUSH Last Admin: 08/29/17 01:02 Dose: 10 ml Zolpidem Tartrate (Ambien (Generic)) 5 mg PO QHS PRN PRN PRN Reason: SLEEP Assessment/Plan Active and Suspected Problems Sepsis (Acute) Cephalgia (Acute) Community acquired pneumonia of left lower lobe of lung (Acute) Left lower pneumonic pleural effusion (Acute) The patient is a 52 year old F with no significant past medical history came to ER with symptoms of cough, fever, chills, myalgia and headache, on and off for about 10 days. Earlier, patient was given Tamiflu in urgent care. Her symptoms were improved for brief. Of time and then gotten worse with cough, fever and chills and left lower chest discomfort/pain. Pain is localized left lower anterior chest. Patient also had loose bowel movement in the morning today, liquid in consistency. No abdominal pain. In ED, she had chest x-ray which showed left lower lobe infiltrate with small left pleural effusion and after that she had CT angiogram chest for elevated d- dimer which showed similar picture left lower lobe consolidation with a small left pleural effusion. PE was ruled out. Patient was ordered IV ceftriaxone and Zithromax. No recent antibiotic as an outpatient. 1. SIRS (tachycardia and leukocytosis with left shift) with hypotension due to severe sepsis due to left lower lobe complicated community acquired pneumonia: Patient is being admitted on the monitored bed. On IV fluid normal saline. IV antibiotics. Bronchodilator. Patient was given IV fluid normal saline 1 L bolus and then 150 ml per hour. 2. Complicated left lower lobe community acquired pneumonia with small parapneumonic left pleural effusion: Initially started on IV antibiotics ceftriaxone and Zithromax but changed IV Zosyn as the patient had low blood pressure suggestive of severe sepsis.. Incentive spirometry symptomatic management for cough, chest physiotherapy and incentive spirometry. Lactic acid is ?2 are normal. Respiratory panel shows human [place] S. Urinary antigens are negative. MRSA nasal screen negative. Blood cultures ?2 negative so far 3. Other symptoms include headache and diarrhea possibly related to sepsis due to pneumonia: Symptomatic management. On probiotic. DVT prophylaxis: Moderate risk, on Lovenox and bilateral SCDs. Microbiology Past 72 Hours 08/28/17 15:55 Mucosa - Nasopharyngeal Respiratory Panel (PCR) - Final Human [place] 08/28/17 14:30 Urine, Clean Catch Streptococcus pneumoniae Antigen (M - Final 08/28/17 14:30 Urine, Clean Catch Legionella Antigen - Final Laboratory Results 08/28/17 14:30: Urine Color Yellow, Urine Clarity Sl. Cloudy, Urine pH 6.5, Ur Specific [place] 1.005, Urine Protein 30 H, Urine Glucose (UA) Normal, Urine Ketones 50 H, Urine Occult Blood 10 H, Urine Nitrite Negative, Urine Bilirubin Negative, Urine Urobilinogen 4 H, Ur Leukocyte Esterase Negative 08/28/17 19:30: MRSA (PCR) Negative 08/29/17 05:50: WBC 14.1 H, RBC 3.76 L, Hgb 11.6 L, Hct 34.2 L, MCV 91.0, MCH 30.9, MCHC 33.9, RDW 14.4, RDW Differential 46.4 H, Plt Count 194, MPV 12.1 H, Immature Gran % (Auto) 0.300, Neut % (Auto) 93.2 H, Lymph % (Auto) 3.3 L, [place] % (Auto) 3.1, Eos % (Auto) 0.0, Baso % (Auto) 0.1, Absolute Neuts (auto) 13.2 H , Absolute Lymphs (auto) 0.46 L, Total Counted Not Reportable 08/29/17 05:50: Sodium 138, Potassium 3.8, Chloride 107, Carbon Dioxide 24.0, Anion Gap 7, BUN 23 H, Creatinine 0.76, Estim Creat Clear Calc 68.48, Est GFR ( MDRD) Af Amer 103, Est GFR (MDRD) Non-Af 85, BUN/Creatinine Ratio 30.2 H, Glucose 102, Calcium 7.5 L 08/29/17 08:35: Lactic Acid 1.6 Clinical Impression(s) from Imaging Studies Brain CT 08/28/17 09:57 IMPRESSION: Normal unenhanced CT scan of the brain. Electronically Signed: Toby Herbert MD at 11:18 EST Tel [phone], Service support , Chest X-Ray 08/28/17 10:40 IMPRESSION: Left lower lobe infiltrate with small left pleural effusion. Electronically Signed: Toby Herbert MD at 11:18 EST Tel [phone], Service support , Chest CTA 08/28/17 11:03 IMPRESSION: Left lower lobe consolidation with a small left pleural effusion. Mild increased markings at the right lung base. Electronically Signed: Toby Herbert MD at 12:30 EST Tel [phone], Service support , Code Visit Inpatient E&M: 55737 Subs Hosp L3
[2017-08-29] MEDS: Piperacil/Tazobactam 3.375 GM/50 ML ML IV ×2 (16:01→22:07)
[2017-08-30] VITALS (14 sets, daily range): BP systolic 94–121; BP diastolic 59–65; PULSE 95–116; RESP 18–22; TEMP 36.1–37.3; O2SAT 94–98
[2017-08-30] MEDS: 0.9% Normal Saline 1,000 ML 150 ML IV ×2 (01:07→07:51)
[2017-08-30] MEDS: oxyCODONE 5 MG Tablet PO ×5 (01:12→21:04)
[2017-08-30] MEDS: Albuterol 2.5 MG/3 ML VIAL.NEB. INHALATION (03:00)
[2017-08-30] MEDS: Piperacil/Tazobactam 3.375 GM/50 ML ML IV ×3 (06:01→21:05)
[2017-08-30] MEDS: Enoxaparin 40 MG/0.4 ML Syringe SC (06:01)
[2017-08-30 06:51] LABS: Absolute Lymphocyte Count 0.62 X10^3/ul (0.83-4.51); Basophil# 0.03 X10^3/uL; Basophil% 0.2 % (0-1); Eosinophil# 0.07 X10^3/uL; Eosinophils% 0.5 % (0-5); Hematocrit 34.1 % (37-47); Hemoglobin 11.4 g/dl (12.0-15.0); Lymphocyte # 0.62 X10^3/ul (4.0); Lymphocyte % 4.1 % (19-41); Mean Corp Hgb Conc 33.4 g/gl (32-36); Mean Corpuscular Hgb 30.3 pg (27.0-32.0); Mean Corpuscular Volume 90.7 fL (81-99); Mean Platelet Vol. 11.6 fl (6.2-12.0); Monocyte# 1.17 X10^3/uL; Monocyte% 7.8 % (0-10); Neutrophil # 13.01 X10^3/uL (2.7-7.7); Neutrophil % 86.9 % (47-70); Platelet Count 215 K/mm3 (150-450); RBC Distribution Width CV 14.9 % (11.6-14.6); RBC Distribution Width SD 48.7 fl (35.1-43.9); Red Blood Count 3.76 M/mm3 (4.2-5.4)
[2017-08-30 06:53] LABS: Differential Indicated SCAN CRITERIA MET; POSITIVE COUNT NO; POSITIVE DIFFERENTIAL NO; POSITIVE MORPHOLOGY YES
[2017-08-30 07:06] LABS: Anion Gap 9 (5-15); BUN 13 mg/dL (7-18); Calcium,Total 7.4 mg/dL (8.5-10.1); Chloride 110 mmol/L (98-107); Creatinine, Serum 0.68 mg/dL (0.55-1.02); EST Glomerular Filtration Rate 96 mL/min (>60); Est Glom Filt Rate - Afr Amer 116 mL/min (>60); Estimated Creatinine Clearance 76.54 ml/min; Glucose 89 mg/dL (74-106); Potassium 3.4 mmol/L (3.5-5.1); Sodium Level 140 mmol/L (136-145)
[2017-08-30] MEDS: Ipratropium/Albuterol Sulfate 3 ML AMPUL.NEB INHALATION ×2 (07:22→18:34)
[2017-08-30] MEDS: Acetaminophen 325 MG Tablet 650 MG PO ×4 (07:36→23:30)
--- NOTE | 2017-08-30 09:05 | PCM.PN.HOSP ---
Patient Problems: Active and Suspected Problems Sepsis (Acute) Cephalgia (Acute) Community acquired pneumonia of left lower lobe of lung (Acute) Left lower pneumonic pleural effusion (Acute) Subjective: Patient has mild tachycardia. Blood pressure 94/59. No hypoxia. No fever for 48 hrs feeling better than yesterday Vitals/I&O's: Vital Signs Temp Pulse Resp BP Pulse Ox 99.1 F 116 H 22 H 94/59 L 94 08/30/17 02:40 08/30/17 07:23 08/30/17 07:23 08/30/17 02:40 08/30/17 07:23 Oxygen Delivery Method Room Air Weight: 164 lb 14.492 oz Body Mass Index (BMI) 30.1 Intake and Output for Last 24 Hours 08/28/17 08/29/17 08/30/17 23:59 23:59 23:59 Intake Total 5761 / 5761 1415 / 1415 Output Total 2600 / 2600 600 / 600 Balance 3161 / 3161 815 / 815 General: Oriented x3, Cooperative, Lethargic HEENT: Atraumatic, PERRLA, EOMI, Normocephalic Neck: Supple, No JVD, Negative Carotid Bruits Lungs: No rhonchi, No wheeze, Diminished - on posterior half of left lung Cardiovascular: Regular rate, No murmurs Abdomen: Bowel Sounds Present, Soft, Non Tender, Non-Distended Extremities: Capillary Refill Less than 3 Seconds, Edema Skin: No rashes, No breakdown Musculoskeletal: No Tenderness to Palpation of Joints or Extremities Neurological: Cranial nerves II-XII grossly intact Psych/Mental Status: Normal Affect, Appropriate Microbiology Past 72 Hours 08/28/17 15:55 Mucosa - Nasopharyngeal Respiratory Panel (PCR) - Final Human [place] 08/28/17 14:30 Urine, Clean Catch Streptococcus pneumoniae Antigen (M - Final 08/28/17 14:30 Urine, Clean Catch Legionella Antigen - Final Laboratory Results 08/29/17 08:35: Lactic Acid 1.6 08/30/17 06:20: WBC 15.0 H, RBC 3.76 L, Hgb 11.4 L, Hct 34.1 L, MCV 90.7, MCH 30.3, MCHC 33.4, RDW 14.9 H, RDW Differential 48.7 H, Plt Count 215, MPV 11.6, Immature Gran % (Auto) 0.500, Neut % (Auto) 86.9 H, Lymph % (Auto) 4.1 L, [place] % (Auto) 7.8, Eos % (Auto) 0.5, Baso % (Auto) 0.2, Absolute Neuts (auto) 13.0 H, Absolute Lymphs (auto) 0.62 L, Total Counted Not Reportable 08/30/17 06:20: Sodium 140, Potassium 3.4 L, Chloride 110 H, Carbon Dioxide 21.0, Anion Gap 9, BUN 13, Creatinine 0.68, Estim Creat Clear Calc 76.54, Est GFR (MDRD) Af Amer 116, Est GFR (MDRD) Non-Af 96, BUN/Creatinine Ratio 19.0, Glucose 89, Calcium 7.4 L Current Medications Acetaminophen (Tylenol) 650 mg PO Q4H PRN PRN PRN Reason: FEVER Last Admin: 08/30/17 07:36 Dose: 650 mg Albuterol Sulfate (Ventolin Aerosols) 2.5 mg INHALATION Q2H PRN PRN PRN Reason: SHORTNESS OF BREATH Last Admin: 08/30/17 03:00 Dose: 2.5 mg Albuterol/Ipratropium (Duoneb) 3 ml INHALATION Q6HWA.RT [facility] Last Admin: 08/30/17 07:22 Dose: 3 ml Docusate Sodium (Colace) 200 mg PO BID PRN PRN PRN Reason: Constipation Enoxaparin Sodium (Lovenox) 40 mg SC DAILY@0600 [facility] Last Admin: 08/30/17 06:01 Dose: 40 mg Famotidine (Pepcid) 20 mg PO BID [facility] Last Admin: 08/29/17 22:07 Dose: 20 mg Guaifenesin (Mucinex) 1,200 mg PO BID [facility] Last Admin: 08/29/17 22:07 Dose: 1,200 mg Sodium Chloride () 1,000 mls @ 150 mls/hr IV .Q6H40M [facility] Last Admin: 08/30/17 07:51 Dose: 150 mls/hr Piperacillin Sod/Tazobactam Sod (Zosyn) 3.375 gm in 50 mls @ 12.5 mls/hr IV Q8 [facility] Last Admin: 08/30/17 06:01 Dose: 12.5 mls/hr Ondansetron HCl (Zofran) 4 mg IV Q6H PRN PRN PRN Reason: NAUSEA Last Admin: 08/29/17 16:29 Dose: 4 mg Oxycodone HCl (Oxyir) 5 mg PO Q4H PRN PRN PRN Reason: Moderate Pain (pain scale 4-5) Last Admin: 08/30/17 07:35 Dose: 5 mg Potassium Chloride (K-Dur) 40 meq PO DAILYCM DOMITILA Sodium Chloride () 5 - 30 ml IV UD PRN PRN Reason: SALINE FLUSH Last Admin: 08/29/17 01:02 Dose: 10 ml Zolpidem Tartrate (Ambien (Generic)) 5 mg PO QHS PRN PRN PRN Reason: SLEEP Assessment/Plan Active and Suspected Problems Sepsis (Acute) Cephalgia (Acute) Community acquired pneumonia of left lower lobe of lung (Acute) Left lower pneumonic pleural effusion (Acute) The patient is a 52 year old F with no significant past medical history came to ER with symptoms of cough, fever, chills, myalgia and headache, on and off for about 10 days. Earlier, patient was given Tamiflu in urgent care. Her symptoms were improved for brief. Of time and then gotten worse with cough, fever and chills and left lower chest discomfort/pain. Pain is localized left lower anterior chest. Patient also had loose bowel movement in the morning today, liquid in consistency. No abdominal pain. In ED, she had chest x-ray which showed left lower lobe infiltrate with small left pleural effusion and after that she had CT angiogram chest for elevated d-dimer which showed similar picture left lower lobe consolidation with a small left pleural effusion. PE was ruled out. Patient was ordered IV ceftriaxone and Zithromax. No recent antibiotic as an outpatient. 1. SIRS (tachycardia and leukocytosis with left shift) with hypotension due to severe sepsis due to left lower lobe complicated community acquired pneumonia: Patient is being admitted on the monitored bed. On IV fluid normal saline. IV antibiotics. Bronchodilator. Patient was given IV fluid normal saline 1 L bolus and then 150 ml per hour. 2. Complicated left lower lobe community acquired pneumonia with small parapneumonic left pleural effusion: Initially started on IV antibiotics ceftriaxone and Zithromax but changed IV Zosyn as the patient had low blood pressure suggestive of severe sepsis.. Incentive spirometry symptomatic management for cough, chest physiotherapy and incentive spirometry. Lactic acid is ?2 are normal. Respiratory panel shows human [place] virus. Urinary antigens are negative. MRSA nasal screen negative. Blood cultures ?2 negative so far 3. Other symptoms include headache and diarrhea possibly related to sepsis due to pneumonia: Symptomatic management. On probiotic. DVT prophylaxis: Moderate risk, on Lovenox and bilateral SCDs. Anticipate discharge tomorrow Microbiology Past 72 Hours 08/28/17 13:20 Blood Culture (Wb) - Anticubital Right Blood Culture - Preliminary No growth in 48 hours. 08/28/17 13:15 Blood Culture (Wb) - Right Hand Blood Culture - Preliminary No growth in 48 hours. 08/28/17 15:55 Mucosa - Nasopharyngeal Respiratory Panel (PCR) - Final Human [place] 08/28/17 14:30 Urine, Clean Catch Streptococcus pneumoniae Antigen (M - Final 08/28/17 14:30 Urine, Clean Catch Legionella Antigen - Final Laboratory Results 08/30/17 06:20: WBC 15.0 H, RBC 3.76 L, Hgb 11.4 L, Hct 34.1 L, MCV 90.7, MCH 30.3, MCHC 33.4, RDW 14.9 H, RDW Differential 48.7 H, Plt Count 215, MPV 11.6, Immature Gran % (Auto) 0.500, Neut % (Auto) 86.9 H, Lymph % (Auto) 4.1 L, [place] % (Auto) 7.8, Eos % (Auto) 0.5, Baso % (Auto) 0.2, Absolute Neuts (auto) 13.0 H, Absolute Lymphs (auto) 0.62 L, Total Counted Not Reportable 08/30/17 06:20: Sodium 140, Potassium 3.4 L, Chloride 110 H, Carbon Dioxide 21.0, Anion Gap 9, BUN 13, Creatinine 0.68, Estim Creat Clear Calc 76.54, Est GFR (MDRD) Af Amer 116, Est GFR (MDRD) Non-Af 96, BUN/Creatinine Ratio 19.0, Glucose 89, Calcium 7.4 L Clinical Impression(s) from Imaging Studies Brain CT 08/28/17 09:57 IMPRESSION: Normal unenhanced CT scan of the brain. Electronically Signed: Toby Herbert MD at 11:18 EST Tel [phone], Service support , Chest X-Ray 08/28/17 10:40 IMPRESSION: Left lower lobe infiltrate with small left pleural effusion. Electronically Signed: Toby Herbert MD at 11:18 EST Tel [phone], Service support , Chest CTA 08/28/17 11:03 IMPRESSION: Left lower lobe consolidation with a small left pleural effusion. Mild increased markings at the right lung base. Electronically Signed: Toby Herbert MD at 12:30 EST Tel [phone], Service support , Code Visit Inpatient E&M: 01500 Subs Hosp L3
[2017-08-30] MEDS: guaiFENesin 600 MG Tablet 1200 MG PO ×2 (10:06→21:05)
[2017-08-30] MEDS: Famotidine 20 MG Tablet PO ×2 (10:06→21:05)
--- NOTE | 2017-08-30 12:20 | RAD_ITS ---
STUDY: X-RAY CHEST REASON FOR EXAM: Female, 52 years old. History of pneumonia. TECHNIQUE: PA and lateral views of the chest. COMPARISON: Comparison is made with prior examination dated August 28, 2017. FINDINGS: EKG electrodes are seen. There now is evidence of a moderate to large left pleural effusion with underlying infiltration and/or atelectasis in the left hemithorax. Mild increased markings at the right lung base with blunting of the right costophrenic angle. Normal size heart. Normal mediastinum and [place]. Normal visualized pulmonary arteries. Normal visualized aortic arch and descending thoracic aorta. Normal visualized thoracic spine. Normal visualized ribs, clavicles, and shoulders. There is no demonstrated abnormality of the visualized soft tissue structures of the upper abdomen. RAD/Chest PA and Lateral IMPRESSION: Moderate to large left pleural effusion with underlying infiltration and/or atelectasis. Mild increased markings at the right lung base with blunting of the right costophrenic angle. Electronically Signed: Toby eHrbert MD at 15:06 EST Tel [phone], Service support ,
[2017-08-30] MEDS: Ondansetron 4 MG/2 ML Vial IV (12:46)
--- NOTE | 2017-08-30 13:10 | ECHOD_ITS ---
Reason For Study: Dyspnea/SOB Procedure This was a 2D Doppler, Color Flow transthoracic echocardiogram. Exam performed portable in patient room. Left Ventricle Normal LV size. Transmitral and pulmonary venous doppler flow suggestive of impaired relaxation of left ventricle. Transmitral diastolic flow velocities suggest mild (stage 1) diastolic dysfunction (reversed pattern). The estimated ejection fraction is 55 %. No regional wall motion abnormalities noted. Right Ventricle Normal RV size. Normal systolic function. Atria Normal left atrium. Normal right atrium. Mitral Valve Normal mitral valve. Tricuspid Valve Normal tricuspid valve. Mild (1+) tricuspid valve insufficiency. Pulmonary artery systolic pressure is 26 mmHg. Aortic Valve Trisinus/trileaflet aortic valve. Pulmonic Valve Normal pulmonic valve. Great Vessels Normal aortic root. The pulmonary artery is normal size. Inferior vena cava collapse with sniff. Pericardium/Pleural No pericardial effusion. Moderate size left pleural effusion. MMode/2D Measurements & Calculations LVIDd: 4.5 cm IVSd: 0.71 cm Ao root diam: 3.0 cm LVIDs: 3.2 cm LVPWd: 0.61 cm LA dimension: 4.2 cm RVDd: 4.5 cm FS: 29.6 % LAV(MOD-bp): 25.8 ml LA A4 area: 10.0 cm2 RA A4 area: 9.5 cm2 LAV(MOD-bp) Indexed: 14.7 ml/m2 LAV(MOD-sp2): 32.6 ml LAV(MOD-sp4): 20.3 ml Doppler Measurements & Calculations MV E max jaylon: 64.4 cm/sec Lat Peak E' Jaylon: 9.0 cm/sec Med Peak E' Jaylon: 9.7 cm/sec MV A max jaylon: 80.4 cm/sec E/E' lat: 7.2 E/E' med: 6.6 MV E/A: 0.80 Ao V2 max: 129.3 cm/sec LV V1 max: 91.2 cm/sec PA V2 max: 86.5 cm/sec Ao max P.7 mmHg LV V1 max P.3 mmHg Ao V2 mean: 97.6 cm/sec Ao mean P.1 mmHg Ao V2 VTI: 25.0 cm TR max jaylon: 230.6 cm/sec TR max P.5 mmHg Interpretation Summary Normal LV size. Transmitral and pulmonary venous doppler flow suggestive of impaired relaxation of left ventricle The estimated ejection fraction is 55 %. Transmitral diastolic flow velocities suggest mild (stage 1) diastolic dysfunction (reversed pattern). Moderate size left pleural effusion. Ordering Physician: Clarence Crawley Referring Physician: Nohemy Cuevas Performed By: Lynsey Chamorro, LACHO, RVT
[2017-08-30] MEDS: Furosemide 40 MG/4 ML Vial IV (14:08)
[2017-08-30] MEDS: guaiFENesin 10 ML UDC (200MG/10ML) PO (21:04)
[2017-08-31] VITALS (9 sets, daily range): BP systolic 93–106; BP diastolic 59–67; PULSE 95–128; RESP 18–20; TEMP 36.6–37.2; O2SAT 91–94
[2017-08-31] MEDS: oxyCODONE 5 MG Tablet PO ×3 (01:10→18:07)
[2017-08-31] MEDS: Piperacil/Tazobactam 3.375 GM/50 ML ML IV ×2 (05:40→14:19)
[2017-08-31 06:52] LABS: Absolute Lymphocyte Count 0.87 X10^3/ul (0.83-4.51); Absolute Neutrophil Count 12.8 X10^3/uL (2.0-7.7); Basophil# 0.17 X10^3/uL; Eosinophil# 0.18 X10^3/uL; Eosinophils% 1.1 % (0-5); Hematocrit 34.9 % (37-47); Hemoglobin 11.7 g/dl (12.0-15.0); International Normalized Ratio 1.2; Lymphocyte # 0.87 X10^3/ul (4.0); Lymphocyte % 5.3 % (19-41); Mean Corp Hgb Conc 33.5 g/gl (32-36); Mean Corpuscular Hgb 30.3 pg (27.0-32.0); Mean Corpuscular Volume 90.4 fL (81-99); Mean Platelet Vol. 11.5 fl (6.2-12.0); Monocyte# 2.12 X10^3/uL; Monocyte% 12.8 % (0-10); Neutrophil # 12.81 X10^3/uL (2.7-7.7); Neutrophil % 77.6 % (47-70); Platelet Count 265 K/mm3 (150-450); Prothrombin Time (Protime)PT. 14.6 SECONDS (11.7-14.9); RBC Distribution Width CV 14.9 % (11.6-14.6); RBC Distribution Width SD 48.8 fl (35.1-43.9); Red Blood Count 3.86 M/mm3 (4.2-5.4); White Blood Count 16.5 K/mm3 (4.4-11.0)
[2017-08-31 06:53] LABS: Partial Thromboplast Time 33.6 Seconds (24.1-36.2)
[2017-08-31] MEDS: Ipratropium/Albuterol Sulfate 3 ML AMPUL.NEB INHALATION ×2 (06:54→13:04)
[2017-08-31 06:57] LABS: Differential Indicated SCAN CRITERIA MET; POSITIVE COUNT YES; POSITIVE DIFFERENTIAL YES; POSITIVE MORPHOLOGY YES
[2017-08-31 07:16] LABS: ALB/GLOB Ratio 0.5 RATIO (0.9-2.4); AST(SGOT) 12 U/L (15-37); Alanine Aminotransfer ALT/SGPT 15 U/L (13-56); Alkaline Phosphatase 115 U/L (45-117); Anion Gap 6 (5-15); BUN 12 mg/dL (7-18); BUN/Creat Ratio 15.1 RATIO (10-20); Calcium,Total 8.1 mg/dL (8.5-10.1); Chloride 106 mmol/L (98-107); EST Glomerular Filtration Rate 81 mL/min (>60); Est Glom Filt Rate - Afr Amer 97 mL/min (>60); Estimated Creatinine Clearance 65.06 ml/min; Globulin 3.8 g/dL (2.2-4.2); Glucose 115 mg/dL (74-106); Potassium 3.2 mmol/L (3.5-5.1); Protein, Total 5.8 g/dL (6.4-8.2); Sodium Level 138 mmol/L (136-145)
[2017-08-31 07:39] LABS: ALB/GLOB Ratio 0.5 RATIO (0.9-2.4); LDH 218 U/L (84-246); Protein, Total 5.9 g/dL (6.4-8.2)
--- NOTE | 2017-08-31 08:00 | US_ITS ---
PROCEDURE: ULTRASOUND GUIDED THORACENTESIS. DATE: August 31, 2017.. INDICATION: Female, 52 years old. Small left pleural effusion with underlying infiltration. PHYSICIAN: Toby Herbert M.D. PROCEDURE: The risks, benefits, and alternatives to the procedure were explained to the patient. The specific risks of bleeding, infection, and pneumothorax requiring chest tube insertion were discussed and accepted. Written informed consent was obtained. Ultrasonographic evaluation of the left lower pleural space was carried out. An adequate pocket was identified. The patient was placed in the sitting, upright position. The overlying skin was prepped and draped in sterile fashion. 1% lidocaine was administered subcutaneously for local anesthesia. Under ultrasound guidance, a 6 [place] thoracentesis needle/catheter system was advanced into the left posterior lower pleural fluid collection. Approximately 45 mL of bloody fluid fluid was drained. The catheter was removed, and a sterile dressing was applied. A specimen was collected and sent to the laboratory for analysis, as requested by the referring clinician. The patient tolerated the procedure well. A chest x-ray was ordered. US/Thoracentesis W US IMPRESSION: Ultrasound-guided left thoracentesis. Electronically Signed: Toby Herbert MD at 15:02 EST Tel [phone], Service support ,
[2017-08-31] MEDS: Acetaminophen 325 MG Tablet 650 MG PO ×2 (08:02→18:07)
--- NOTE | 2017-08-31 08:25 | PCM.CONS.GEN ---
Problem List (1) Sepsis Status: Acute (2) Cephalgia Status: Acute (3) Community acquired pneumonia of left lower lobe of lung Status: Acute (4) Left lower pneumonic pleural effusion Status: Acute Reason for Consult Date of Consultation: 08/31/17 Reason for Consultation: pneumonia, large L pleural effusion History of Present Illness: The patient is a 52 year old F with no significant past medical history who presented to the emergency room on 08/28 with complaints of a 10-day history of intermittent cough, fevers and chills, myalgias, and headache. Patient was seen at urgent care on August 16 and given Tamiflu for presumed influenza. 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 She notes initial improvement and went back to work, however then her cough and fever returned. She also developed anterior left lower chest discomfort. She has been feeling significantly weak. She had one episode of diarrhea on Monday, otherwise no nausea, vomiting, or diarrhea. Upon arrival to the ED, CT the brain was obtained secondary to severe headache and showed nothing acute. Chest x-ray 08/28 showed left lower lobe infiltrate with small left pleural effusion. D-dimer was elevated so CTA of the chest was performed and showed confirmed left lower lobe consolidation and small left pleural effusion, mild increased markings at the right lung base. Negative for pulmonary embolism. Initial blood work showed a leukocytosis of 20,700, neutrophils 94.9% lymphocytes 2%. ANC was 19.6. INR was 1.3, not on anticoagulation as outpatient. D-dimer elevated at 1.51. Chemistry revealed acute kidney injury with BUN of 37 and creatinine 1.24. Lactate was normal at 1.5. Total bilirubin elevated at 1.3 and direct bili 0.32. AST/ALT were normal. The patient was given bronchodilators, ceftriaxone and Zosyn, IV fluids, admitted to the medical surgical floor for further management. The patient initially improved, however still complained of left-sided chest discomfort. Leukocytosis improved but was persistent. A repeat chest x-ray was obtained on 08/30/17 and showed a moderate to large left pleural effusion with underlying infiltration and/or atelectasis. There was mild increased markings at the right lung base with blunting of the right costophrenic angle. Patient has remained afebrile somewhat hypotensive but asymptomatic. She has not required any oxygen supplementation, however she is 91% on room air this morning. Patient has been somewhat tachycardic. There are plans for an ultrasound-guided thoracentesis today around 0930. This morning labs showed a persistent leukocytosis, stable hemoglobin, potassium remains low and is being replaced IV and PO. The patient remains on DuoNeb scheduled aerosols and PRN Ventolin, DVT prophylaxis with Lovenox, Mucinex and Robitussin, and Zosyn. Transthoracic echocardiogram showed estimated EF of 55% with stage I diastolic dysfunction and moderate sized left pleural effusion. Patient has been a lifelong non-smoker with no significant spoke smoke exposures. She has never required any pulmonary testing or visits to a examiner rating clerk. She has no history of environmental/occupational exposures. She has never had any sort of lung disease except for occasional bronchitis requiring antibiotics. She had walking pneumonia greater than 5 years ago which was successfully treated as an outpatient by her PCP. Denies any personal history of cancer. Patient states her mother had cancer but it has been in remission for several years, she believes it might have been leukemia. Patient denies any history of hemoptysis, unexplained weight loss, palpitations, prior history of chest pain, or prior history of shortness of breath. She does remain somewhat dyspneic on exertion and her anterior left-sided pleuritic pain remains. 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 Denies: Night Sweats, Weight Change Eyes: Denies: Blurred vision, Double vision, Vision Change HEENT: Reports: Head Aches - recently, started bilaterally/frontal now just L-sided frontotemporal area. Denies: Difficulty Swallowing, Dysphasia, Nasal Congestion, Post Nasal Drip, Sinus Congestion, Sinus Drainage, Sore Throat Cardiovascular: Reports: Orthopnea. Denies: Chest Pain, Claudication, Edema, Light Headedness, Palpitations, Paroxysmal Noc. Dyspnea, Syncope Respiratory: Reports: Cough, Pleuritic Pain, Shortness of breath upon exertion, Sputum production. Denies: Hemoptysis, Shortness of breath at rest, Wheezing Gastrointestinal: Reports: Diarrhea - x1 monday, no BM since. Denies: Abdominal Pain, Constipation, Dyspepsia, Hematemesis, Hematochezia, Nausea, Melena, Vomiting Genitourinary: Denies: Dysuria, Frequency, Hematuria, Retention Gynecological: Denies: Breast symptoms Musculoskeletal: Reports: Muscle pain - Left lateral rib cage/abdomen Skin: Denies: Dryness, Pruritis, Rash, Wounds Neurological: Reports: Headaches. Denies: Balance problems, Change in Speech, Confusion, Difficulty swallowing, Focal weakness, Numbness, Tingling, Tremor, Seizures Psychiatric: Denies: Anxiety, Depression Endocrine: Denies: Change in Body Habitus, Polydipsia, Polyuria Hematologic/ Lymphatic: Denies: Adenopathy, Anemia, Easy Bruising, Easy Bleeding, Hx of blood clot, Hx of blood transfusion Patient Problems: Active and Suspected Problems Sepsis (Acute) Cephalgia (Acute) Community acquired pneumonia of left lower lobe of lung (Acute) Left lower pneumonic pleural effusion (Acute) Subjective: Patient was seen and examined. Complains of left anterior lower chest discomfort, worsens with deep inspiration. Also has left-sided frontal temporal headache. Complains of some light sensitivity. Denies any nausea, vomiting, or diarrhea. Feels tight across her upper abdomen. Denies any current shortness of breath, palpitations, or other chest pain. Objective: Clinical Impression(s) from Imaging Studies Brain CT 08/28/17 09:57 IMPRESSION: Normal unenhanced CT scan of the brain. Electronically Signed: Toby Herbert MD at 11:18 EST Tel [phone], Service support , Chest X-Ray 08/28/17 10:40 IMPRESSION: Left lower lobe infiltrate with small left pleural effusion. Electronically Signed: Toby Herbert MD at 11:18 EST Tel [phone], Service support , Chest CTA 02/12/18 11:03 IMPRESSION: Left lower lobe consolidation with a small left pleural effusion. Mild increased markings at the right lung base. Electronically Signed: Toby Herbert MD at 12:30 EST Tel [phone], Service support , Chest X-Ray 08/30/17 12:20 IMPRESSION: Moderate to large left pleural effusion with underlying infiltration and/or atelectasis. Mild increased markings at the right lung base with blunting of the right costophrenic angle. Electronically Signed: Toby Herbert MD at 15:06 EST Tel [phone], Service support , - Physical Exam General: Alert, Oriented x3, Cooperative, No apparent distress, Well developed, Well nourished, - - No conversational dyspnea HEENT: Atraumatic, PERRLA, Normocephalic Oral: Moist Mucosa, No Gingival or Mucosal Lesions/ Ulcerations Neck: Supple, No Nodes, Trachea Midline Lungs: - - No air movement bottom 2/3 of left lung posteriorly, right mid to lower lung diminished with rales. No appreciable wheezing or rhonchi. Symmetric expansion, no sensory muscle use. Dullness to percussion to left mid to lower lobe Cardiovascular: Regular Rhythm, Normal S1, Normal S2, No murmurs, No rub noted, No Gallop, Tachycardic Abdomen: Bowel Sounds Present, Soft, Non Tender, Non-Distended Extremities: No clubbing, No cyanosis, No edema, Capillary Refill Less than 3 Seconds Skin: No rashes, No breakdown Musculoskeletal: No Tenderness to Palpation of Joints or Extremities Lymphatic: No Cervical, Supraclavicular, or Inguinal Adenopathy Neurological: Cranial nerves II-XII grossly intact, Neuro grossly intact, Motor Exam 5/5 strength throughout Psych/Mental Status: Anxious - Secondary to upcoming thoracentesis, - - cooperative Vital Signs Temp Pulse Resp BP Pulse Ox 98.9 F 101 H 20 H 93/59 L 91 08/31/17 02:51 08/31/17 06:54 08/31/17 06:54 08/31/17 02:51 08/31/17 06:54 Oxygen Delivery Method Room Air Weight: 164 lb 14.492 oz Body Mass Index (BMI) 30.1 Intake and Output for Last 24 Hours 08/29/17 08/30/17 08/31/17 23:59 23:59 23:59 Intake Total 5761 / 5761 1415 / 1415 598 / 598 Output Total 2600 / 2600 2200 / 2200 1100 / 1100 Balance 3161 / 3161 -785 / -785 -502 / -502 Microbiology Past 72 Hours 08/28/17 13:20 Blood Culture - Preliminary Blood Culture (Wb) - Anticubital Right No growth in 48 hours. 08/28/17 13:15 Blood Culture - Preliminary Blood Culture (Wb) - Right Hand No growth in 48 hours. 08/28/17 15:55 Respiratory Panel (PCR) - Final Mucosa - Nasopharyngeal Human [place] 08/28/17 14:30 Streptococcus pneumoniae Antigen (M - Final Urine, Clean Catch 08/28/17 14:30 Legionella Antigen - Final Urine, Clean Catch Laboratory Tests Past 24 Hrs 08/31/17 08/31/17 08/31/17 06:10 06:10 06:10 WBC 16.5 H RBC 3.86 L Hgb 11.7 L Hct 34.9 L MCV 90.4 MCH 30.3 MCHC 33.5 RDW 14.9 H RDW Differential 48.8 H Plt Count 265 MPV 11.5 Immature Gran % (Auto) 2.200 H Neut % (Auto) 77.6 H Lymph % (Auto) 5.3 L [place] % (Auto) 12.8 H Eos % (Auto) 1.1 Baso % (Auto) 1.0 Absolute Neuts (auto) 12.8 H Absolute Lymphs (auto) 0.87 Total Counted Not Reportable Diff Path Review November foll PT 14.6 INR 1.2 APTT 33.6 Sodium 138 Potassium 3.2 L Chloride 106 Carbon Dioxide 26.0 Anion Gap 6 BUN 12 Creatinine 0.80 Estim Creat Clear Calc 65.06 Est GFR (MDRD) Af Amer 97 Est GFR (MDRD) Non-Af 81 BUN/Creatinine Ratio 15.1 Glucose 115 H Calcium 8.1 L Total Bilirubin 0.80 AST 12 L ALT 15 Alkaline Phosphatase 115 Lactate Dehydrogenase Total Protein 5.8 L Albumin 2.0 L Globulin 3.8 Albumin/Globulin Ratio 0.5 L 08/31/17 06:10 WBC RBC Hgb Hct MCV MCH MCHC RDW RDW Differential Plt Count MPV Immature Gran % (Auto) Neut % (Auto) Lymph % (Auto) [place] % (Auto) Eos % (Auto) Baso % (Auto) Absolute Neuts (auto) Absolute Lymphs (auto) Total Counted Diff Path Review PT INR APTT Sodium Potassium Chloride Carbon Dioxide Anion Gap BUN Creatinine Estim Creat Clear Calc Est GFR (MDRD) Af Amer Est GFR (MDRD) Non-Af BUN/Creatinine Ratio Glucose Calcium Total Bilirubin AST ALT Alkaline Phosphatase Lactate Dehydrogenase 218 Total Protein 5.9 L Albumin Globulin 4.0 Albumin/Globulin Ratio 0.5 L Assessment/Plan Active and Suspected Problems Sepsis (Acute) Cephalgia (Acute) Community acquired pneumonia of left lower lobe of lung (Acute) Left lower pneumonic pleural effusion (Acute) RECOMMENDATIONS 1. Wean oxygen supplementation to keep saturations greater than 89%. 2. Encourage incentive spirometer/chest physiotherapy 3. Increase activity as tolerated 4. Continue bronchodilators 5. Await thoracentesis, fluid for cytology and culture 6. Obtain sputum culture 7. Continue IV fluid resuscitation 8. Ambulatory pulse ox prior to discharge IMPRESSIONS 1. Sepsis secondary to community-acquired pneumonia/ large left pleural effusion Unclear etiology, infectious versus malignancy-likely not malignancy, low risk factors. Likely infectious/viral given recent URI/suspected influenza, respiratory panel showing human metapneumovirus. Urine strep/Legionella antigens negative. Blood cultures showed NGTD. Leukocytosis remains, afebrile. Left pleural effusion has significantly increased over the last 2 days. Patient remains on room air, pulse ox is stable but low side of normal. Echocardiogram performed showed estimated EF of 55% with stage I diastolic dysfunction and moderate sized left pleural effusion. US-guided thoracentesis planned for this morning. Await fluid culture and cytology, transudative versus exudative. Obtain sputum culture. Adjust antibiotic coverage pending those results. Encourage incentive spirometer and chest physiotherapy. Increase activity as tolerated. Provide supplemental oxygen to keep saturations greater than 89%. Patient should have ambulatory pulse ox prior to discharge to assess for exertional hypoxemia. Pending results of her thoracentesis, she can follow-up in the pulmonary clinic or with her primary care physician. 2. Acute kidney injury/cephalgia/chest pain/anxiety YASMIN resolved with IV fluid resuscitation, likely secondary to dehydration secondary to recent illness and decreased oral intake. Chest discomfort secondary to #1. 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 She was given a small ?1 dose of Ativan prior to the thoracentesis. Thank you for the opportunity to participate in this patient's care, please do not hesitate to contact us with any further questions or concerns. This note was generated with [employer] dictation software. It may contain incorrect words, spelling, and punctuation that were not noted in checking the note before signing.
--- NOTE | 2017-08-31 08:35 | CON.PCM_ITS ---
Problem List (1) Sepsis Status: Acute (2) Cephalgia Status: Acute (3) Community acquired pneumonia of left lower lobe of lung Status: Acute (4) Left lower pneumonic pleural effusion Status: Acute Reason for Consult Date of Consultation: 08/31/17 Reason for Consultation: pneumonia, large L pleural effusion History of Present Illness: The patient is a 52 year old F with no significant past medical history who presented to the emergency room on 08/28 with complaints of a 10-day history of intermittent cough, fevers and chills, myalgias, and headache. Patient was seen at urgent care on August 16 and given Tamiflu for presumed influenza. 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 She notes initial improvement and went back to work, however then her cough and fever returned. She also developed anterior left lower chest discomfort. She has been feeling significantly weak. She had one episode of diarrhea on Monday, otherwise no nausea, vomiting, or diarrhea. Upon arrival to the ED, CT the brain was obtained secondary to severe headache and showed nothing acute. Chest x-ray 08/28 showed left lower lobe infiltrate with small left pleural effusion. D-dimer was elevated so CTA of the chest was performed and showed confirmed left lower lobe consolidation and small left pleural effusion, mild increased markings at the right lung base. Negative for pulmonary embolism. Initial blood work showed a leukocytosis of 20,700, neutrophils 94.9% lymphocytes 2%. ANC was 19.6. INR was 1.3, not on anticoagulation as outpatient. D-dimer elevated at 1.51. Chemistry revealed acute kidney injury with BUN of 37 and creatinine 1.24. Lactate was normal at 1.5. Total bilirubin elevated at 1.3 and direct bili 0.32. AST/ALT were normal. The patient was given bronchodilators, ceftriaxone and Zosyn, IV fluids, admitted to the medical surgical floor for further management. The patient initially improved, however still complained of left-sided chest discomfort. Leukocytosis improved but was persistent. A repeat chest x-ray was obtained on 08/30/17 and showed a moderate to large left pleural effusion with underlying infiltration and/or atelectasis. There was mild increased markings at the right lung base with blunting of the right costophrenic angle. Patient has remained afebrile somewhat hypotensive but asymptomatic. She has not required any oxygen supplementation, however she is 91% on room air this morning. Patient has been somewhat tachycardic. There are plans for an ultrasound-guided thoracentesis today around 0930. This morning labs showed a persistent leukocytosis, stable hemoglobin, potassium remains low and is being replaced IV and PO. The patient remains on DuoNeb scheduled aerosols and PRN Ventolin, DVT prophylaxis with Lovenox, Mucinex and Robitussin, and Zosyn. Transthoracic echocardiogram showed estimated EF of 55% with stage I diastolic dysfunction and moderate sized left pleural effusion. Patient has been a lifelong non-smoker with no significant spoke smoke exposures. She has never required any pulmonary testing or visits to a night worker. She has no history of environmental/occupational exposures. She has never had any sort of lung disease except for occasional bronchitis requiring antibiotics. She had walking pneumonia greater than 5 years ago which was successfully treated as an outpatient by her PCP. Denies any personal history of cancer. Patient states her mother had cancer but it has been in remission for several years, she believes it might have been leukemia. Patient denies any history of hemoptysis, unexplained weight loss, palpitations , prior history of chest pain, or prior history of shortness of breath. She does remain somewhat dyspneic on exertion and her anterior left-sided pleuritic pain remains. Past Medical History Allergies No Known Allergies Allergy (Verified 08/28/17 09:44) Home Medications: Ambulatory Orders Medication Instructions Recorded NK [NK] 08/28/17 Surgical History: - - x1 Psychiatric History: No pertinent psych hx KEYLINER History: No pertinent KEYLINER history Lives: Spouse/ Significant Other Smoking Status: Never smoker Tobacco Use: Non-smoker Alcohol: None Drugs: None - *Family History Paternal History Items: - - ETOH abuse Maternal History Items: - - leukemia Review of Systems Constitutional: Reports: Anorexia, Chills, Fever, Malaise, Weakness, Fatigue. Denies: Night Sweats, Weight Change Eyes: Denies: Blurred vision, Double vision, Vision Change HEENT: Reports: Head Aches - recently, started bilaterally/frontal now just L- sided frontotemporal area. Denies: Difficulty Swallowing, Dysphasia, Nasal Congestion, Post Nasal Drip, Sinus Congestion, Sinus Drainage, Sore Throat Cardiovascular: Reports: Orthopnea. Denies: Chest Pain, Claudication, Edema, Light Headedness, Palpitations, Paroxysmal Noc. Dyspnea, Syncope Respiratory: Reports: Cough, Pleuritic Pain, Shortness of breath upon exertion, Sputum production. Denies: Hemoptysis, Shortness of breath at rest, Wheezing Gastrointestinal: Reports: Diarrhea - x1 monday, no BM since. Denies: Abdominal Pain, Constipation, Dyspepsia, Hematemesis, Hematochezia, Nausea, Melena, Vomiting Genitourinary: Denies: Dysuria, Frequency, Hematuria, Retention Gynecological: Denies: Breast symptoms Musculoskeletal: Reports: Muscle pain - Left lateral rib cage/abdomen Skin: Denies: Dryness, Pruritis, Rash, Wounds Neurological: Reports: Headaches. Denies: Balance problems, Change in Speech, Confusion, Difficulty swallowing, Focal weakness, Numbness, Tingling, Tremor, Seizures Psychiatric: Denies: Anxiety, Depression Endocrine: Denies: Change in Body Habitus, Polydipsia, Polyuria Hematologic/ Lymphatic: Denies: Adenopathy, Anemia, Easy Bruising, Easy Bleeding , Hx of blood clot, Hx of blood transfusion Patient Problems: Active and Suspected Problems Sepsis (Acute) Cephalgia (Acute) Community acquired pneumonia of left lower lobe of lung (Acute) Left lower pneumonic pleural effusion (Acute) Subjective: Patient was seen and examined. Complains of left anterior lower chest discomfort, worsens with deep inspiration. Also has left-sided frontal temporal headache. Complains of some light sensitivity. Denies any nausea, vomiting, or diarrhea. Feels tight across her upper abdomen. Denies any current shortness of breath, palpitations, or other chest pain. Objective: Clinical Impression(s) from Imaging Studies Brain CT 08/28/17 09:57 IMPRESSION: Normal unenhanced CT scan of the brain. Electronically Signed: Toby Herbert MD at 11:18 EST Tel [phone], Service support , Chest X-Ray 08/28/17 10:40 IMPRESSION: Left lower lobe infiltrate with small left pleural effusion. Electronically Signed: Toby Herbert MD at 11:18 EST Tel [phone], Service support , Chest CTA 02/12/18 11:03 IMPRESSION: Left lower lobe consolidation with a small left pleural effusion. Mild increased markings at the right lung base. Electronically Signed: Toby Herbert MD at 12:30 EST Tel [phone], Service support , Chest X-Ray 08/30/17 12:20 IMPRESSION: Moderate to large left pleural effusion with underlying infiltration and/or atelectasis. Mild increased markings at the right lung base with blunting of the right costophrenic angle. Electronically Signed: Toby Herbert MD at 15:06 EST Tel [phone], Service support , - Physical Exam General: Alert, Oriented x3, Cooperative, No apparent distress, Well developed, Well nourished, - - No conversational dyspnea HEENT: Atraumatic, PERRLA, Normocephalic Oral: Moist Mucosa, No Gingival or Mucosal Lesions/ Ulcerations Neck: Supple, No Nodes, Trachea Midline Lungs: - - No air movement bottom 2/3 of left lung posteriorly, right mid to lower lung diminished with rales. No appreciable wheezing or rhonchi. Symmetric expansion, no sensory muscle use. Dullness to percussion to left mid to lower lobe Cardiovascular: Regular Rhythm, Normal S1, Normal S2, No murmurs, No rub noted, No Gallop, Tachycardic Abdomen: Bowel Sounds Present, Soft, Non Tender, Non-Distended Extremities: No clubbing, No cyanosis, No edema, Capillary Refill Less than 3 Seconds Skin: No rashes, No breakdown Musculoskeletal: No Tenderness to Palpation of Joints or Extremities Lymphatic: No Cervical, Supraclavicular, or Inguinal Adenopathy Neurological: Cranial nerves II-XII grossly intact, Neuro grossly intact, Motor Exam 5/5 strength throughout Psych/Mental Status: Anxious - Secondary to upcoming thoracentesis, - - cooperative Vital Signs Temp Pulse Resp BP Pulse Ox 98.9 F 101 H 20 H 93/59 L 91 08/31/17 02:51 08/31/17 06:54 08/31/17 06:54 08/31/17 02:51 08/31/17 06:54 Oxygen Delivery Method Room Air Weight: 164 lb 14.492 oz Body Mass Index (BMI) 30.1 Intake and Output for Last 24 Hours 08/29/17 08/30/17 08/31/17 23:59 23:59 23:59 Intake Total 5761 / 5761 1415 / 1415 598 / 598 Output Total 2600 / 2600 2200 / 2200 1100 / 1100 Balance 3161 / 3161 -785 / -785 -502 / -502 Microbiology Past 72 Hours 08/28/17 13:20 Blood Culture - Preliminary Blood Culture (Wb) - Anticubital Right No growth in 48 hours. 08/28/17 13:15 Blood Culture - Preliminary Blood Culture (Wb) - Right Hand No growth in 48 hours. 08/28/17 15:55 Respiratory Panel (PCR) - Final Mucosa - Nasopharyngeal Human [place] 08/28/17 14:30 Streptococcus pneumoniae Antigen (M - Final Urine, Clean Catch 08/28/17 14:30 Legionella Antigen - Final Urine, Clean Catch Laboratory Tests Past 24 Hrs 08/31/17 08/31/17 08/31/17 06:10 06:10 06:10 WBC 16.5 H RBC 3.86 L Hgb 11.7 L Hct 34.9 L MCV 90.4 MCH 30.3 MCHC 33.5 RDW 14.9 H RDW Differential 48.8 H Plt Count 265 MPV 11.5 Immature Gran % (Auto) 2.200 H Neut % (Auto) 77.6 H Lymph % (Auto) 5.3 L [place] % (Auto) 12.8 H Eos % (Auto) 1.1 Baso % (Auto) 1.0 Absolute Neuts (auto) 12.8 H Absolute Lymphs (auto) 0.87 Total Counted Not Reportable Diff Path Review November foll PT 14.6 INR 1.2 APTT 33.6 Sodium 138 Potassium 3.2 L Chloride 106 Carbon Dioxide 26.0 Anion Gap 6 BUN 12 Creatinine 0.80 Estim Creat Clear Calc 65.06 Est GFR (MDRD) Af Amer 97 Est GFR (MDRD) Non-Af 81 BUN/Creatinine Ratio 15.1 Glucose 115 H Calcium 8.1 L Total Bilirubin 0.80 AST 12 L ALT 15 Alkaline Phosphatase 115 Lactate Dehydrogenase Total Protein 5.8 L Albumin 2.0 L Globulin 3.8 Albumin/Globulin Ratio 0.5 L 08/31/17 06:10 WBC RBC Hgb Hct MCV MCH MCHC RDW RDW Differential Plt Count MPV Immature Gran % (Auto) Neut % (Auto) Lymph % (Auto) [place] % (Auto) Eos % (Auto) Baso % (Auto) Absolute Neuts (auto) Absolute Lymphs (auto) Total Counted Diff Path Review PT INR APTT Sodium Potassium Chloride Carbon Dioxide Anion Gap BUN Creatinine Estim Creat Clear Calc Est GFR (MDRD) Af Amer Est GFR (MDRD) Non-Af BUN/Creatinine Ratio Glucose Calcium Total Bilirubin AST ALT Alkaline Phosphatase Lactate Dehydrogenase 218 Total Protein 5.9 L Albumin Globulin 4.0 Albumin/Globulin Ratio 0.5 L Assessment/Plan Active and Suspected Problems Sepsis (Acute) Cephalgia (Acute) Community acquired pneumonia of left lower lobe of lung (Acute) Left lower pneumonic pleural effusion (Acute) RECOMMENDATIONS 1. Wean oxygen supplementation to keep saturations greater than 89%. 2. Encourage incentive spirometer/chest physiotherapy 3. Increase activity as tolerated 4. Continue bronchodilators 5. Await thoracentesis, fluid for cytology and culture 6. Obtain sputum culture 7. Continue IV fluid resuscitation 8. Ambulatory pulse ox prior to discharge IMPRESSIONS 1. Sepsis secondary to community-acquired pneumonia/ large left pleural effusion Unclear etiology, infectious versus malignancy-likely not malignancy, low risk factors. Likely infectious/viral given recent URI/suspected influenza, respiratory panel showing human metapneumovirus. Urine strep/Legionella antigens negative. Blood cultures showed NGTD. Leukocytosis remains, afebrile. Left pleural effusion has significantly increased over the last 2 days. Patient remains on room air, pulse ox is stable but low side of normal. Echocardiogram performed showed estimated EF of 55% with stage I diastolic dysfunction and moderate sized left pleural effusion. US-guided thoracentesis planned for this morning. Await fluid culture and cytology, transudative versus exudative. Obtain sputum culture. Adjust antibiotic coverage pending those results. Encourage incentive spirometer and chest physiotherapy. Increase activity as tolerated. Provide supplemental oxygen to keep saturations greater than 89%. Patient should have ambulatory pulse ox prior to discharge to assess for exertional hypoxemia. Pending results of her thoracentesis, she can follow-up in the pulmonary clinic or with her primary care physician. 2. Acute kidney injury/cephalgia/chest pain/anxiety YASMIN resolved with IV fluid resuscitation, likely secondary to dehydration secondary to recent illness and decreased oral intake. Chest discomfort secondary to #1. 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 She was given a small ?1 dose of Ativan prior to the thoracentesis. Thank you for the opportunity to participate in this patient's care, please do not hesitate to contact us with any further questions or concerns. This note was generated with [employer] dictation software. It may contain incorrect words, spelling, and punctuation that were not noted in checking the note before signing.
--- NOTE | 2017-08-31 09:25 | PN_ITS ---
Patient Problems: Active and Suspected Problems Sepsis (Acute) Cephalgia (Acute) Community acquired pneumonia of left lower lobe of lung (Acute) Left lower pneumonic pleural effusion (Acute) Subjective: Seen and examined. Patient remains afebrile but tachycardic in 112/min. Blood pressure on the lower side but not hypotensive. Tachypnea respiratory rate 20-22/min normal pulse ox. Overall she feels better than yesterday evening. She is scheduled for ultrasound-guided left-sided thoracocentesis particularly. Also discussed with the skid adzer, Dr. Al and MACHINE HEEL BUILDER, Mee. Patient complaint of mild headache. She denies a history of chronic headache including migraine/tension headache. Headache possibly related to systemic symptoms of Pneumonia. Objective: General: Oriented x3, Cooperative, Lethargic HEENT: Atraumatic, PERRLA, EOMI, Normocephalic Neck: Supple, No JVD, Negative Carotid Bruits Lungs: No rhonchi, No wheeze, air entry diminished - on posterior half of left lung below left fourth intercostal space with stony dullness on percussion Cardiovascular: no murmurs. Regular rhythm. Sinus tachycardia Abdomen: Bowel Sounds Present, Soft, Non Tender, Non-Distended Extremities: Capillary Refill Less than 3 Seconds, Edema Skin: No rashes, No breakdown Musculoskeletal: No Tenderness to Palpation of Joints or Extremities Neurological: Cranial nerves II-XII grossly intact Psych/Mental Status: Normal Affect, Appropriate Vitals/I&O's: Vital Signs Temp Pulse Resp BP Pulse Ox 98.9 F 101 H 20 H 93/59 L 91 08/31/17 02:51 08/31/17 08:23 08/31/17 06:54 08/31/17 02:51 08/31/17 06:54 Oxygen Delivery Method Room Air Weight: 164 lb 14.492 oz Body Mass Index (BMI) 30.1 Intake and Output for Last 24 Hours 08/29/17 08/30/17 08/31/17 23:59 23:59 23:59 Intake Total 5761 / 5761 1415 / 1415 598 / 598 Output Total 2600 / 2600 2200 / 2200 1100 / 1100 Balance 3161 / 3161 -785 / -785 -502 / -502 Microbiology Past 72 Hours 08/28/17 13:20 Blood Culture (Wb) - Anticubital Right Blood Culture - Preliminary No growth in 48 hours. 08/28/17 13:15 Blood Culture (Wb) - Right Hand Blood Culture - Preliminary No growth in 48 hours. 08/28/17 15:55 Mucosa - Nasopharyngeal Respiratory Panel (PCR) - Final Human [place] 08/28/17 14:30 Urine, Clean Catch Streptococcus pneumoniae Antigen (M - Final 08/28/17 14:30 Urine, Clean Catch Legionella Antigen - Final Laboratory Results 08/31/17 06:10: WBC 16.5 H, RBC 3.86 L, Hgb 11.7 L, Hct 34.9 L, MCV 90.4, MCH 30.3, MCHC 33.5, RDW 14.9 H, RDW Differential 48.8 H, Plt Count 265, MPV 11.5, Immature Gran % (Auto) 2.200 H, Neut % (Auto) 77.6 H, Lymph % (Auto) 5.3 L, [place] % (Auto) 12.8 H, Eos % (Auto) 1.1, Baso % (Auto) 1.0, Absolute Neuts (auto ) 12.8 H, Absolute Lymphs (auto) 0.87, Total Counted Not Reportable, Diff Path Review November08/31/17 06:10: Sodium 138, Potassium 3.2 L, Chloride 106, Carbon Dioxide 26.0, Anion Gap 6, BUN 12, Creatinine 0.80, Estim Creat Clear Calc 65.06, Est GFR ( MDRD) Af Amer 97, Est GFR (MDRD) Non-Af 81, BUN/Creatinine Ratio 15.1, Glucose 115 H, Calcium 8.1 L, Total Bilirubin 0.80, AST 12 L, ALT 15, Alkaline Phosphatase 115, Total Protein 5.8 L, Albumin 2.0 L, Globulin 3.8, Albumin/ Globulin Ratio 0.5 L 08/31/17 06:10: PT 14.6, INR 1.2, APTT 33.6 08/31/17 06:10: Lactate Dehydrogenase 218, Total Protein 5.9 L, Globulin 4.0, Albumin/Globulin Ratio 0.5 L Current Medications Acetaminophen (Tylenol) 650 mg PO Q4H PRN PRN PRN Reason: FEVER Last Admin: 08/31/17 08:02 Dose: 650 mg Albuterol Sulfate (Ventolin Aerosols) 2.5 mg INHALATION Q2H PRN PRN PRN Reason: SHORTNESS OF BREATH Last Admin: 08/30/17 03:00 Dose: 2.5 mg Albuterol/Ipratropium (Duoneb) 3 ml INHALATION Q6HWA.RT [facility] Last Admin: 08/31/17 06:54 Dose: 3 ml Docusate Sodium (Colace) 200 mg PO BID PRN PRN PRN Reason: Constipation Enoxaparin Sodium (Lovenox) 40 mg SC DAILY@0600 [facility] Last Admin: 08/31/17 05:19 Dose: Not Given Famotidine (Pepcid) 20 mg PO BID [facility] Last Admin: 08/30/17 21:05 Dose: 20 mg Guaifenesin (Mucinex) 1,200 mg PO BID [facility] Last Admin: 08/30/17 21:05 Dose: 1,200 mg Guaifenesin (Robitussin) 10 ml PO Q6H PRN PRN PRN Reason: COUGH Last Admin: 08/30/17 21:04 Dose: 10 ml Piperacillin Sod/Tazobactam Sod (Zosyn) 3.375 gm in 50 mls @ 12.5 mls/hr IV Q8 [facility] Last Admin: 08/31/17 05:40 Dose: 12.5 mls/hr Potassium Chloride 20 meq/ (Dextrose) 260 mls @ 130 mls/hr IV X1 ONE Stop: 08/31/17 10:29 Lorazepam (Ativan) 0.5 mg IV X1 ONE Stop: 08/31/17 09:08 Ondansetron HCl (Zofran) 4 mg IV Q6H PRN PRN PRN Reason: NAUSEA Last Admin: 08/30/17 12:46 Dose: 4 mg Oxycodone HCl (Oxyir) 5 mg PO Q4H PRN PRN PRN Reason: Moderate Pain (pain scale 4-5) Last Admin: 08/31/17 05:50 Dose: 5 mg Potassium Chloride (K-Dur) 40 meq PO DAILYCM [facility] Last Admin: 08/31/17 08:02 Dose: 40 meq Sodium Chloride () 5 - 30 ml IV UD PRN PRN Reason: SALINE FLUSH Last Admin: 08/29/17 01:02 Dose: 10 ml Zolpidem Tartrate (Ambien (Generic)) 5 mg PO QHS PRN PRN PRN Reason: SLEEP Assessment/Plan Active and Suspected Problems Sepsis (Acute) Cephalgia (Acute) Community acquired pneumonia of left lower lobe of lung (Acute) Left lower pneumonic pleural effusion (Acute) The patient is a 52 year old F with no significant past medical history came to ER with symptoms of cough, fever, chills, myalgia and headache, on and off for about 10 days. Earlier, patient was given Tamiflu in urgent care. Her symptoms were improved for brief. Of time and then gotten worse with cough, fever and chills and left lower chest discomfort/pain. Pain is localized left lower anterior chest. Patient also had loose bowel movement in the morning today, liquid in consistency. No abdominal pain. In ED, she had chest x-ray which showed left lower lobe infiltrate with small left pleural effusion and after that she had CT angiogram chest for elevated d- dimer which showed similar picture left lower lobe consolidation with a small left pleural effusion. PE was ruled out. Patient was ordered IV ceftriaxone and Zithromax. No recent antibiotic as an outpatient. 1. SIRS (tachycardia and leukocytosis with left shift) with hypotension due to severe sepsis due to left lower lobe complicated community acquired pneumonia: Patient is being admitted on the monitored bed. On IV fluid normal saline. IV antibiotics. Bronchodilator. Patient was given IV fluid normal saline 1 L bolus and then 150 ml per hour. 2. Complicated left lower lobe community acquired pneumonia with increase from moderate to large parapneumonic left pleural effusion: Initially started on IV antibiotics ceftriaxone and Zithromax but changed IV Zosyn as the patient had low blood pressure suggestive of severe sepsis.. Incentive spirometry symptomatic management for cough, chest physiotherapy and incentive spirometry. Lactic acid is ?2 are normal. Respiratory panel shows human [place] virus. Urinary antigens are negative. MRSA nasal screen negative. Blood cultures ?2 negative so far. Pulmonary consult reviewed and appreciated. Patient is scheduled for ultrasound-guided thoracocentesis. Pleural fluid chemistry, cell count, serum LDH and protein ordered. 3. Chronic diastolic heart failure as per the echo. 2D echo was done as the patient had increasing left sided pleural effusion. Suggestive of impaired relaxation of left ventricle otherwise normal EF 55% with normal LV size and systolic function. Normal right and left atria. Mild TR, PASP 26 mmHg with normal tricuspid valve. Other symptoms include headache and diarrhea possibly related to sepsis due to pneumonia: Symptomatic management. On probiotic. DVT prophylaxis: Moderate risk, on Lovenox and bilateral SCDs. Microbiology Past 72 Hours 08/28/17 13:20 Blood Culture (Wb) - Anticubital Right Blood Culture - Preliminary No growth in 48 hours. 08/28/17 13:15 Blood Culture (Wb) - Right Hand Blood Culture - Preliminary No growth in 48 hours. 08/28/17 15:55 Mucosa - Nasopharyngeal Respiratory Panel (PCR) - Final Human [place] 08/28/17 14:30 Urine, Clean Catch Streptococcus pneumoniae Antigen (M - Final 08/28/17 14:30 Urine, Clean Catch Legionella Antigen - Final Laboratory Results 08/30/17 06:20: WBC 15.0 H, RBC 3.76 L, Hgb 11.4 L, Hct 34.1 L, MCV 90.7, MCH 30.3, MCHC 33.4, RDW 14.9 H, RDW Differential 48.7 H, Plt Count 215, MPV 11.6, Immature Gran % (Auto) 0.500, Neut % (Auto) 86.9 H, Lymph % (Auto) 4.1 L, [place] % (Auto) 7.8, Eos % (Auto) 0.5, Baso % (Auto) 0.2, Absolute Neuts (auto) 13.0 H , Absolute Lymphs (auto) 0.62 L, Total Counted Not Reportable 08/30/17 06:20: Sodium 140, Potassium 3.4 L, Chloride 110 H, Carbon Dioxide 21.0 , Anion Gap 9, BUN 13, Creatinine 0.68, Estim Creat Clear Calc 76.54, Est GFR ( MDRD) Af Amer 116, Est GFR (MDRD) Non-Af 96, BUN/Creatinine Ratio 19.0, Glucose 89, Calcium 7.4 L Clinical Impression(s) from Imaging Studies Brain CT 08/28/17 09:57 IMPRESSION: Normal unenhanced CT scan of the brain. Electronically Signed: Toby Herbert MD at 11:18 EST Tel [phone], Service support , Chest X-Ray 08/28/17 10:40 IMPRESSION: Left lower lobe infiltrate with small left pleural effusion. Electronically Signed: Toby Herbert MD at 11:18 EST Tel [phone], Service support , Chest CTA 08/28/17 11:03 IMPRESSION: Left lower lobe consolidation with a small left pleural effusion. Mild increased markings at the right lung base. Electronically Signed: Toby Herbert MD at 12:30 EST Tel [phone], Service support , Code Visit Inpatient E&M: 71348 Subs Hosp L3
[2017-08-31] MEDS: Ondansetron 4 MG/2 ML Vial IV (09:46)
[2017-08-31] MEDS: LORazepam 2 MG/ML Syringe 0.5 MG IV ×2 (09:46→13:25)
[2017-08-31 10:28] LABS: Pathologist Review Reviewed
[2017-08-31] MEDS: Famotidine 20 MG Tablet PO (11:57)
[2017-08-31] MEDS: guaiFENesin 600 MG Tablet 1200 MG PO (11:57)
[2017-08-31] MEDS: 0.9% NaCl Peripheral Flush Adult/Peds IV ×2 (13:26→14:19)
--- NOTE | 2017-08-31 14:03 | RAD_ITS ---
STUDY: X-RAY CHEST REASON FOR EXAM: Female, 52 years old. Status post left thoracentesis. TECHNIQUE: Single PA view of the chest. COMPARISON: Comparison is made with prior study dated August 30, 2017. FINDINGS: EKG electrodes are seen. There is persistent opacification of the left hemithorax most likely representing accommodation of infiltration and atelectasis. There is no evidence of pneumothorax. The right lung is clear. RAD/Chest Insp/Exp 2 View IMPRESSION: Status post left thoracentesis. There is no evidence of pneumothorax. Persistent opacification of the left hemithorax. Electronically Signed: Toby Herbert MD at 14:28 EST Tel [phone], Service support ,
[2017-08-31 15:02] LABS: Glucose, Body Fluid 18 mg/dL (40-70)
[2017-08-31 15:15] LABS: LDH,Body Fluid 1950 Units/l (Not Establ.); Protein, Body Fluid 3.4 g/dL (Not Establ.)
--- NOTE | 2017-08-31 15:22 | CM.UR ---
Insurance review for [facility] facilities using MMO website: [facility], [facility], [facility], [facility], [facility] ([email or web address]). Gabriela KEEN RN ACM
--- NOTE | 2017-08-31 15:53 | PCM.DC.SUM ---
Discharge Date and Diagnosis Date of Admission: 08/28/17 Date of Discharge: 08/31/17 - Primary Discharge Diagnosis Active and Suspected Problems SIRS (tachycardia and leukocytosis with left shift) with hypotension due to severe sepsis (low BP) due to left lower lobe complicated community acquired pneumonia: 2. Complicated left lower lobe community acquired pneumonia, present on admission with rapid increase from moderate to large parapneumonic left pleural effusion in 48 hrs with Hemothorax with suspicion of necrotic pneumonia s/p thoracocentesis 3. Chronic diastolic heart failure as per the echo. Hospital Course and Treatment Imaging Results: 08/31/17 08:00 Thoracentesis W US [US] Routine 08/31/17 14:03 Chest Insp/Exp 2 View [RAD] Urgent Summary of Care Provided: The patient is a 52 year old F with no significant past medical history came to ER with symptoms of cough, fever, chills, myalgia and headache, on and off for about 10 days. Earlier, patient was given Tamiflu in urgent care. Her symptoms were improved for brief. Of time and then gotten worse with cough, fever and chills and left lower chest discomfort/pain. Pain is localized left lower anterior chest. Patient also had loose bowel movement in the morning today, liquid in consistency. No abdominal pain. In ED, she had chest x-ray which showed left lower lobe infiltrate with small left pleural effusion and after that she had CT angiogram chest for elevated d-dimer which showed similar picture left lower lobe consolidation with a small left pleural effusion. PE was ruled out. Patient was ordered IV ceftriaxone and Zithromax. No recent antibiotic as an outpatient. 1. SIRS (tachycardia and leukocytosis with left shift) with hypotension due to severe sepsis due to left lower lobe complicated community acquired pneumonia: Patient is being admitted on the monitored bed. On IV fluid normal saline. IV antibiotics. Bronchodilator. Patient was given IV fluid normal saline 1 L bolus and then 150 ml per hour. Patient had mild low blood pressure but did not require vasopressor. 2. Complicated left lower lobe community acquired pneumonia, present on admission with rapid increase from moderate to large parapneumonic left pleural effusion in 48 hrs with Hemothorax with suspicion of necrotic pneumonia: Initially started on IV antibiotics ceftriaxone and Zithromax but changed IV Zosyn as the patient had low blood pressure suggestive of severe sepsis.. Incentive spirometry symptomatic management for cough, chest physiotherapy and incentive spirometry. Lactic acid is ?2 are normal. Respiratory panel shows human Shacklefords virus. Urinary antigens are negative. MRSA nasal screen negative. Blood cultures ?2 negative so far. Pulmonary consult reviewed and appreciated. The patient had ultrasound-guided left thoracocentesis about 50 mL, yamileth blood clotted by interventional radiologist, Dr. Herbert. Pleural fluid chemistry, cell count, serum LDH and protein was ordered but cell count could not be done because of clotted blood. Fluid LDH 1950, total protein 3.4, glucose 18 suggestive of exudative nature of pleural effusion most probably parapneumonic effusion. In review of complicated pneumonia with large pleural effusion with hemothorax, the glove factory sewer recommended transfer to tertiary care center with thoracic surgery service. This was discussed with the patient and transfer call made to [facility]. Overall, clinical presentation and hospital course, radiological finding and management was discussed with Dr. Lehman, the hospitalist in [facility]. She was accepted and later on transferred to [facility]. 3. Chronic diastolic heart failure as per the echo. 2D echo was done as the patient had increasing left sided pleural effusion. Suggestive of impaired relaxation of left ventricle otherwise normal EF 55% with normal LV size and systolic function. Normal right and left atria. Mild TR, PASP 26 mmHg with normal tricuspid valve. Other symptoms include headache and diarrhea possibly related to sepsis due to pneumonia: Symptomatic management. On probiotic. DVT prophylaxis: Moderate risk, on Lovenox and bilateral SCDs. Home Medications: Medications to take at Discharge NK [NK] 08/28/17 Primary Care Physician: Nohemy Cuevas DO [Primary Care Provider] - Meaningful Use Info Meaningful Use Diagnoses (Choose all that apply): None applicable Code Visit Inpatient E&M: 12658 Disch Hosp
--- NOTE | 2017-08-31 16:09 | PCA ---
Faxed demographics sheet to Charley at [facility] at [phone]
[2017-09-04 07:46] LABS: pH, Body Fluid 11254 7.2 (Not Estab.)
== END 2017-08-31 18:43 | disposition short-term general hospital (02) | DRG 871 ==
LOC: ED 13:01 → MS2 13:06
PROVIDERS: Internal Medicine Critical Care Medicine; Admitting Provider Internal Medicine; Emergency Provider Emergency Medicine; Family Provider Internal Medicine; PCP Internal Medicine; Visit Provider Internal Medicine
DX: A41.9 Sepsis, unspecified organism (principal); J18.9 Pneumonia, unspecified organism; J91.8 Pleural effusion in other conditions classified elsewhere; N17.9 Acute kidney failure, unspecified; J94.2 Hemothorax; I50.32 Chronic diastolic (congestive) heart failure; R65.20 Severe sepsis without septic shock; R51 Headache; R19.7 Diarrhea, unspecified; F41.9 Anxiety disorder, unspecified; B97.81 Human metapneumovirus as the cause of diseases classified elsewhere
CPT/HCPCS: 32555; 36415; 70450; 71046; 71275; 80048; 80053; 80076; 81002; 82945; 83605; 83615; 83986; 84156; 84157; 84484; 85025; 85379; 85610; 85730; 87040; 87070; 87075; 87205; 87449; 87633; 87641; 93005; 93306; 94640; 94667; 94668; 99284; J7030; J7040; J7050; Q9967; A4216; J1940; J2405

== ENCOUNTER 2017-09-26 13:40 | Emergency (ER) | payer OTHER, SELFPAY ==
[2017-09-26 13:41] VITALS: BP 121/73; PULSE 98; RESP 16; TEMP 36.4; O2SAT 96; BMI 29.0
--- NOTE | 2017-09-26 14:01 | EKG12_ITS ---
Test Reason : Blood Pressure : / mmHG Vent. Rate : 088 BPM Atrial Rate : 088 BPM P-R Int : 164 ms QRS Dur : 080 ms QT Int : 366 ms P-R-T Axes : 057 024 044 degrees QTc Int : 442 ms Normal sinus rhythm Normal ECG Confirmed by NICHOLAS PADRON, JAD ([id number]), business editor ANDREIA VAZQUEZ ([id number]) on 09/29/2017 1:16:16 PM Referred By: ZITA Confirmed By:JAD PETERSON MD
--- NOTE | 2017-09-26 14:01 | RAD_ITS ---
STUDY: X-RAY CHEST REASON FOR EXAM: Female, 52 years old. Left pleural effusion. Chest pain. TECHNIQUE: PA and lateral views of the chest. COMPARISON: Comparison is made with prior study dated August 31, 2017. FINDINGS: EKG electrodes are seen. Residual blunting of the left cardiac phrenic angle with elevation of the left hemidiaphragm. Mild increased markings at the left lung base suggestive of a scarring and/or persistent infiltrate. The right lung is clear. Normal size heart. Normal mediastinum and austen. Normal visualized pulmonary arteries. Normal visualized aortic arch and descending thoracic aorta. Normal visualized thoracic spine. Normal visualized ribs, clavicles, and shoulders. There is no demonstrated abnormality of the visualized soft tissue structures of the upper abdomen. RAD/Chest PA and Lateral IMPRESSION: Blunting of the left costophrenic angle with underlying increased markings. There has been a marked improvement as compared to prior study. Electronically Signed: Toby Herbert MD at 15:11 EDT Tel [phone], Service support ,
--- NOTE | 2017-09-26 14:02 | VDLE_ITS ---
Reason For Study: SHORTNESS OF BREATH RIGHT LEFT GSV is normal. GSV is normal. CFV is compressible, spontaneous, phasic, CFV is compressible, spontaneous, phasic, competent and demonstrates normal competent, and demonstrates normal augmentation. augmentation. FV is compressible, spontaneous, phasic, FV is compressible, spontaneous, phasic, competent and demonstrates normal competent and demonstrates normal augmentation. augmentation. POP V is compressible, spontaneous, phasic, POP V is compressible, spontaneous, phasic, competent and demonstrates normal competent and demonstrates normal augmentation. augmentation. T/P Trunk is compressible. T/P Trunk is compressible. PTV is compressible. PTV is compressible. RT PerV is compressible. LT PerV is compressible. Procedure Exam performed portable in ED. A preliminary report was called and/or faxed to ED nurse. Interpretation Summary No evidence for acute deep venous thrombosis bilateral lower extremities with patent and compressible bilateral great saphenous veins. Ordering Physician: Rufus Xavier Referring Physician: Nohemy Cuevas M.D. Performed By: Lavern Mcfarlane RVT
[2017-09-26 14:27] LABS: Absolute Lymphocyte Count 1.68 X10^3/ul (0.83-4.51); Absolute Neutrophil Count 4.7 X10^3/uL (2.0-7.7); Basophil# 0.02 X10^3/uL; Basophil% 0.3 % (0-1); Eosinophil# 0.15 X10^3/uL; Eosinophils% 2.1 % (0-5); Hematocrit 39.6 % (37-47); Hemoglobin 12.5 g/dl (12.0-15.0); Lymphocyte # 1.68 X10^3/ul (4.0); Mean Corp Hgb Conc 31.6 g/gl (32-36); Mean Corpuscular Hgb 29.6 pg (27.0-32.0); Mean Corpuscular Volume 93.6 fL (81-99); Mean Platelet Vol. 9.9 fl (6.2-12.0); Monocyte# 0.44 X10^3/uL; Monocyte% 6.3 % (0-10); Neutrophil # 4.71 X10^3/uL (2.7-7.7); Neutrophil % 67.2 % (47-70); Platelet Count 386 K/mm3 (150-450); RBC Distribution Width CV 14.3 % (11.6-14.6); RBC Distribution Width SD 48.2 fl (35.1-43.9); Red Blood Count 4.23 M/mm3 (4.2-5.4)
[2017-09-26 14:28] LABS: POSITIVE COUNT NO; POSITIVE DIFFERENTIAL NO; POSITIVE MORPHOLOGY NO
[2017-09-26 14:38] LABS: Anion Gap 8 (5-15); BUN 14 mg/dL (7-18); BUN/Creat Ratio 17.8 RATIO (10-20); Calcium,Total 9.1 mg/dL (8.5-10.1); Chloride 107 mmol/L (98-107); Creatinine, Serum 0.79 mg/dL (0.55-1.02); EST Glomerular Filtration Rate 81 mL/min (>60); Est Glom Filt Rate - Afr Amer 99 mL/min (>60); Estimated Creatinine Clearance 65.88 ml/min; Glucose 84 mg/dL (74-106); Potassium 3.8 mmol/L (3.5-5.1); Sodium Level 141 mmol/L (136-145)
[2017-09-26 14:50] LABS: Lactic Acid 0.8 mmol/L (0.4-2.0)
[2017-09-26 15:24] VITALS: PULSE 68; RESP 16; O2SAT 98
--- NOTE | 2017-09-26 15:29 | ED.DCSUM_ITS ---
- ER Visit Summary Date of Service: 09/26/17 Chief Complaint: Chest pain History of Present Illness: The patient is a [address] Cuevas. Patient has a complicated recent medical history. She was admitted to the hospital with pneumonia last month and developed a parapneumonic effusion. Because of this she was transferred to [facility]. She reports that she had a chest tube on this was not able to drain it so she had surgery. She reports that on September 05 they removed the lower portion of her left lung. This was performed by Dr. White. Patient reports that she has been doing well. States that 4 days ago she was able to do as an 500 mL on her incentive spirometer. She noticed that over the past 2 days this is worsened and she is down to 1500 mL. Patient reports that she has a pain just below her left breast that is been an aching pain and constant for the past 2 days. It is worsened by breathing and relieved by ibuprofen. Pain is 4 out of 10 at worst and 1 out of 10 currently. She states that she has minimal shortness of breath with this. She states that she does still have a cough, but it is nonproductive. She has had chills, but no fever. Physical Examination: Vitals: Stable. Afebrile. General: Well-nourished and well-developed. Head: Normocephalic atraumatic. Neck: Supple, no lymphadenopathy. No JVD. Nontender. Cardiovascular: Regular rate and rhythm. No murmurs. Respiratory: No respiratory distress. Clear to auscultation bilaterally. Incisions to the lateral left wall and the mid back are clean, dry, and intact. They are healing well. There is no surrounding induration, fluctuance, or fluid collection. Abdominal: Soft, nontender, nondistended, normal bowel sounds. No guarding, rebound, or peritoneal signs. Back: Nontender. Extremities: Nontender, no edema. Skin: Normal color, no rash. Neurologic: Alert and oriented ?3. Cranial nerves II through XII are intact. Normal strength and sensation. Psych: Normal affect. Test Results: Lower extremity Dopplers were negative. EKG is sinus at 88 with no acute changes. CBC is normal. Chem-7 is normal. Lactic acid is 0.8. Clinical Impression(s) from Imaging Studies Chest X-Ray 09/26/17 14:01 IMPRESSION: Blunting of the left costophrenic angle with underlying increased markings. There has been a marked improvement as compared to prior study. Emergency Department Course and Treatment: I had a prolonged discussion with patient about the possibility of a PE. She is not hypoxic or tachycardic. She has lower extremity Dopplers that are negative. I do not think exposing the radiation of his CT of the chest is in her best interest. I did not obtain a d- dimer as she recent had surgery on this at likely be positive. Treatment Plan: Patient will be discharged instructions follow-up Dr. Cuevas in 2 days as previously scheduled. She is also instructed to follow-up with her cardiothoracic surgeon, Dr. White, as directed. She does not want anything for pain at home. Return to the emergency department for any worsening symptoms. Disposition: To home in improved and stable condition. Impression: 1. This note was generated with [employer] dictation software. It may contain incorrect words, spelling, and punctuation that were not noted in review of the chart prior to signing ED Disposition - Plan for ED Patient: Disposition: Home or Assisted Living Chief Complaint: Chest Pain Instructions: ED Post Op Pain Referrals: Nohemy Cuevas DO [Primary Care Provider] - Keep Neal appointment
[2017-09-26 15:43] VITALS: BP 109/67; PULSE 78; RESP 16; O2SAT 99
== END 2017-09-26 15:44 | disposition home or self-care (01) ==
PROVIDERS: Emergency Provider Emergency Medicine; Family Provider Internal Medicine; PCP Internal Medicine
DX: Z90.2 Acquired absence of lung [part of] (principal); Z98.890 Other specified postprocedural states; Z79.82 Long term (current) use of aspirin; Z79.2 Long term (current) use of antibiotics
CPT/HCPCS: 36415; 71046; 80048; 83605; 85025; 87040; 93005; 93970; 96360; 99284; J7030; J7040; A4216

== ENCOUNTER → 2019-07-16 12:40 | Outpatient (CLI) | payer OTHER, SELFPAY ==
[2019-07-16 12:12] VITALS: BMI 29.0
--- NOTE | 2019-07-16 12:41 | RAD_ITS ---
STUDY: X-RAY CHEST REASON FOR EXAM: Female, 54 years old. COUGH TECHNIQUE: PA and lateral views. COMPARISON: 09/26/2017. FINDINGS: No suspicious infiltrates. Clearing of left lung base subsegmental atelectasis. Minimal blunting of the left costophrenic sulcus may be due to left pleural fluid and/or pleural thickening. Normal size heart. Normal mediastinum and austen. Normal visualized pulmonary arteries. Normal visualized aortic arch and descending thoracic aorta. Normal visualized thoracic spine. Normal visualized ribs, clavicles, and shoulders. There is no demonstrated abnormality of the visualized soft tissue structures of the upper abdomen. RAD/Chest PA and Lateral IMPRESSION: 1. No acute cardiopulmonary pathology. 2. Clearing of left lung base subsegmental atelectasis. 3. Small left pleural fluid versus pleural thickening. Electronically Signed: Cordell Morgan MD at 14:24 EST , Service support ,
== END ==
PROVIDERS: Family Provider Internal Medicine; PCP Internal Medicine; Referring Provider Physician Assistant Surgical; Visit Provider Physician Assistant Surgical
DX: J20.9 Acute bronchitis, unspecified (principal)
CPT/HCPCS: 71046

== ENCOUNTER → 2019-10-22 | Outpatient (CLI) | payer OTHER, SELFPAY ==
[2019-07-16 12:12] VITALS: BMI 29.0
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
== END | disposition home or self-care (01) ==
LOC: HPRAD 15:00
PROVIDERS: PCP Internal Medicine; Referring Provider Internal Medicine; Visit Provider Internal Medicine
DX: R05 Cough (principal)
CPT/HCPCS: 71046

== ENCOUNTER 2020-12-27 21:20 | Emergency (ER) | payer OTHER, SELFPAY ==
[2019-07-16 12:12] VITALS: BMI 29.0
[2020-12-27 21:20] VITALS: BP 139/81; PULSE 88; RESP 16; TEMP 36.4; O2SAT 98; BMI 32.7
[2020-12-27] MEDS: Diphth,Pertuss(Acell),Tet Vac 0.5 ML Vial IM (21:57)
[2020-12-27] MEDS: oxyCODONE 5 MG Tablet 10 MG PO (21:58)
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
[2020-12-27 23:12] VITALS: BP 134/68; PULSE 82; RESP 18
== END 2020-12-27 23:15 | disposition home or self-care (01) ==
PROVIDERS: Emergency Provider Emergency Medicine; PCP Internal Medicine
DX: T20.10XA Burn of first degree of head, face, and neck, unspecified site, initial encounter (principal); T21.11XA Burn of first degree of chest wall, initial encounter; T31.0 Burns involving less than 10% of body surface; M19.90 Unspecified osteoarthritis, unspecified site; Z23 Encounter for immunization
CPT/HCPCS: 90471; 90715; 99282

== ENCOUNTER 2021-11-22 07:12 | Day surgery (SDC) | payer OTHER, SELFPAY ==
[2021-11-22] VITALS (7 sets, daily range): BP systolic 97–115; BP diastolic 62–68; PULSE 67–85; RESP 16; TEMP 36.5–36.8; O2SAT 96–98; BMI 33.5
[2021-11-22 07:35] LABS: Internal QC Validated? YES +Cl - CLEAR BKGD; Pregnancy, Urine Negative Negative
[2021-11-22] MEDS: Lactated Ringers 1,000 ML 15 ML IV (07:49)
--- NOTE | 2021-11-22 07:50 | PCM.HP.BLA ---
History and Physical Date of Admission: 11/22/21 History of Present Illness Chief Complaint: Screening colonoscopy Narrative Narrative: Vania is a 56-year-old with no significant past medical history who arrives here for screening colonoscopy. She is not having any problems with her bowels at this time. She not have any nausea. She not have any vomiting. Is not having any chest pain or shortness of breath. She has no family history of colon cancer or colon polyps. She does have some mild arthritis but does not take any medicines for it. Overall she is doing very well. PFSH PFSH Medical History Back pain Balance problem Fatigue History of arthritis Knee pain Neck pain Surgical History History of lung surgery History of tonsillectomy Social History Smoking Status: Never smoker alcohol intake: never ROS ROS ED Constitutional Constitutional ED: Denies chills or fever(s) ENT ENT ED: Denies rhinorrhea Cardiovascular Cardiovascular: Denies chest pain Respiratory/Chest Respiratory/Chest: Denies cough or dyspnea Gastrointestinal Gastrointestinal: Denies abdominal pain, diarrhea, nausea or vomiting Genitourinary Genitourinary ED: Denies dysuria or hematuria Musculoskeletal Musculoskeletal: Denies back pain Integumentary Reports other Details: Burn Neurologic Neurologic: Denies paresthesias or weakness Psychiatric Psychiatric: Denies depression Endocrine Endocrinology: Denies fatigue Allergic/Immunologic Allergic/Immunologic ED: Denies urticaria EXAM Physical Exam Const Vital Signs: Temperature 97.5 F L Temperature Source Temporal Pulse Rate 88 Respiratory Rate 16 Respiratory Effort Normal Non-Labored Respiratory Depth Normal Respiratory Pattern Normal Blood Pressure 139/81 H Blood Pressure Mean 100 Pulse Ox 98 Oxygen Delivery Method Room Air Positive well nourished and well developed General Appearance ED: well developed and NAD HEENT Reports moist mucous membranes Neck no lymphadenopathy, supple and no JVD Chest Wall inspection of chest normal Resp normal respiratory effort and clear to auscultation bilaterally Cardio regular rate, regular rhythm, no murmurs and peripheral pulses 2+ throughout GI normal to inspection, nondistended, normoactive bowel sounds, non-tender and no masses Palpation: soft Back/Spine normal to inspection Extremity normal to inspection General Extremety ED: Negative for tenderness Neuro oriented x3 and no sensory deficits noted Sensorium / Orientation: alert Motor Exam: strength 5/5 throughout Psych mental status grossly normal Skin no rashes or lesions noted Assessment and plan: 56-year-old undergoing screening colonoscopy. She was explained alternatives, risk, benefits including not withstanding bleeding, infection, sepsis, perforation, need for emergency or . She will have an ASA of 1.
--- NOTE | 2021-11-22 08:32 | OP.COLON_ITS ---
Patient Name: Maida Love Procedure Date: 11/22/2021 7:55 AM Date of : 1965 Age: 56 Procedure: Colonoscopy Indications: Screening for colorectal malignant neoplasm Providers: Rupert Mills DO Medicines: Monitored Anesthesia Care Patient Profile: This is a 56 year old female. Refer to note in patient chart for documentation of history and physical. Last Colonoscopy: none. The patient's first colonoscopy is today. Complications: No immediate complications. Procedure: Pre-Anesthesia Assessment: - Prior to the procedure, a History and Physical was performed, and patient medications and allergies were reviewed. The patient is competent. The risks and benefits of the procedure and the sedation options and risks were discussed with the patient. All questions were answered and informed consent was obtained. Patient identification and proposed procedure were verified by the physician in the pre-procedure area. Mental Status Examination: alert and oriented. Airway Examination: normal oropharyngeal airway and neck mobility. Respiratory Examination: clear to auscultation. CV Examination: normal. Prophylactic Antibiotics: The patient does not require prophylactic antibiotics. Prior Anticoagulants: The patient has taken no previous anticoagulant or antiplatelet agents. ASA Grade Assessment: II - A patient with mild systemic disease. After reviewing the risks and benefits, the patient was deemed in satisfactory condition to undergo the procedure. The anesthesia plan was to use moderate sedation / analgesia (conscious sedation). Immediately prior to administration of medications, the patient was re-assessed for adequacy to receive sedatives. The heart rate, respiratory rate, oxygen saturations, blood pressure, adequacy of pulmonary ventilation, and response to care were monitored throughout the procedure. The physical status of the patient was re-assessed after the procedure. After I obtained informed consent, the scope was passed under direct vision. Throughout the procedure, the patient's blood pressure, pulse, and oxygen saturations were monitored continuously. The Colonoscope was introduced through the anus and advanced to the cecum, identified by appendiceal orifice and ileocecal valve. The colonoscopy was performed without difficulty. The patient tolerated the procedure well. The quality of the bowel preparation was good. Moderate Sedation: Moderate (conscious) sedation was personally administered by an anesthesia professional. The following parameters were monitored: oxygen saturation, heart rate, blood pressure, respiratory rate, EKG, adequacy of pulmonary ventilation, and response to care. Scope In: 8:09:52 AM Scope Withdrawal Time 0 hours 11 minutes 30 seconds Scope Out: 8:28:36 AM Total Procedure Duration Time 0 hours 18 minutes 44 seconds Findings: Hemorrhoids were found on perianal exam. A few small-mouthed diverticula were found in the recto-sigmoid colon and sigmoid colon. The exam was otherwise without abnormality on direct and retroflexion views. Impression: - Hemorrhoids found on perianal exam. - Diverticulosis in the recto-sigmoid colon and in the sigmoid colon. - The examination was otherwise normal on direct and retroflexion views. - No specimens collected. Recommendation: - Discharge patient to home. - Resume previous diet. - Continue present medications. - Repeat colonoscopy in 10 years for screening purposes. Procedure Code(s): --- Professional --- G0121, Colorectal cancer screening; colonoscopy on individual not meeting criteria for high risk CPT copyright 2017 [employer]. All rights reserved. The codes documented in this report are preliminary and upon certified medical coder review may be revised to meet current compliance requirements. Rupert Mills DO 11/22/2021 8:32:18 AM This report has been signed electronically. Number of Addenda: 1 Note Initiated On: 11/22/2021 7:55 AM Addendum Number: 1 Addendum Date: 04/15/2022 6:28:01 AM MAC was used as sedation for this procedure. Rupert Mills DO 04/15/2022 6:28:07 AM This report has been signed electronically.
--- NOTE | 2021-11-22 08:33 | OP.CCLET_ITS ---
04/15/2022 Nohemy Cuevas [address] [place] [address] Re : Colonoscopy procedure for Maida Love Dear Dr. Cuevas This procedure was performed on Monday, November 22, 2021. My impressions and recommendations are as follows: Impressions : - Hemorrhoids found on perianal exam. - Diverticulosis in the recto-sigmoid colon and in the sigmoid colon. - The examination was otherwise normal on direct and retroflexion views. - No specimens collected. Recommendations : - Discharge patient to home. - Resume previous diet. - Continue present medications. - Repeat colonoscopy in 10 years for screening purposes. My findings are described in the full procedure note, which is enclosed. If I can be of further assistance, please feel free to contact me at . Sincerely, Rupert Mills, 11/22/2021 8:32:18 AM This report has been signed electronically.
== END 2021-11-22 09:22 | disposition home or self-care (01) ==
LOC: EN 07:13 → AC 07:16
PROVIDERS: Anesthesiology; PCP Internal Medicine; Referring Provider Internal Medicine; Visit Provider Internal Medicine Gastroenterology
PROC: 0DJD8ZZ Inspection of Lower Intestinal Tract, Via Natural or Artificial Opening Endoscopic (ICD-10-PCS; CPT 45378; principal; 2021-11-22 07:55)
DX: Z12.11 Encounter for screening for malignant neoplasm of colon (principal); K57.30 Diverticulosis of large intestine without perforation or abscess without bleeding; K64.9 Unspecified hemorrhoids
CPT/HCPCS: 45378; 81025; 87426; J7120; J2405

== ENCOUNTER → 2024-03-01 | Outpatient (CLI) | payer OTHER, SELFPAY ==
--- NOTE | 2024-03-01 09:28 | US_ITS ---
STUDY: ULTRASOUND BREAST - LEFT REASON FOR EXAM: Female, 58 years old. Left breast lump. TECHNIQUE: Axial and longitudinal images of the LEFT breast were performed with a high resolution ultrasound transducer. # OF IMAGES: 18 COMPARISON: Comparison is made with prior mammogram done earlier today. FINDINGS: LEFT Breast: The palpable lump corresponds to a 2 cm x 1.8 cm x 1.1 cm heterogeneous hypoechoic slightly irregular nodule at the 12:00 position breast at 3 cm from the nipple. Biopsy recommended. Incidental note is made of 2, subcentimeter cysts in the same area. US/Breast Limited Unilateral IMPRESSION: The palpable lump corresponds to a 2 cm x 1.8 cm x 1.1 cm heterogeneous slightly irregular nodule at the 12:00 position of the breast at 3 cm from nipple. Biopsy recommended. Incidental note is made of 2, small adjacent cysts. ASSESSMENT CATEGORY: BIRADS Category 4: Suspicious - Biopsy Should Be Considered. A letter regarding these results will be sent to the patient by the facility within 30 days. Electronically Signed: Toby Herbert MD at 13:16 EDT ,
--- NOTE | 2024-03-01 09:28 | BI_ITS ---
MAMMOGRAPHY - BILATERAL DIAGNOSTIC REASON FOR EXAM: Female, 58 years old. Palpable lump in the upper lateral anterior aspect of the left breast. PERTINENT HISTORY: Aunt with breast cancer. TECHNIQUE: Digital bilateral breast rubina (3D mammographic acquisition) in the CC and MLO projections. 2-D mediolateral oblique (MLO) and craniocaudad (CC) views of both breasts were obtained. CAD: Full Field Digital Mammography with Computer Added Detection was performed. COMPARISON: Comparison is made with prior outside examination dated February 12, 2013. FINDINGS: Breast Composition: The breasts are heterogeneously dense, which may obscure small masses. The palpable lump corresponds to a 1.9 x 1.5 cm well-defined nodule in the superior retroareolar region of the left breast. Correlation with ultrasound is recommended for further evaluation. No other significant abnormalities are identified. BI/DIAG MAMM W/CAD, BILAT IMPRESSION: The palpable lump corresponds to a 1.9 cm x 1.5 cm well-defined nodule in the superior retroareolar region of the left breast as described. Correlation with ultrasound is recommended. ASSESSMENT CATEGORY: BIRADS Category 0: Incomplete. Need additional imaging evaluation. A letter regarding these results will be sent to the patient by the facility within 30 days. Approximately 10% of breast cancers are not detected by mammography. A normal mammogram should not delay biopsy of a clinically suspicious abnormality. Electronically Signed: Toby Herbert MD at 12:02 EDT ,
== END | disposition home or self-care (01) ==
PROVIDERS: PCP Internal Medicine; Referring Provider Internal Medicine; Visit Provider Internal Medicine
DX: N63.20 Unspecified lump in the left breast, unspecified quadrant (principal)
CPT/HCPCS: 76642; 77062; 77066; G0279